=== PATIENT | male | born 1975 | race Caucasian/White ===

== ENCOUNTER 2017-10-21 14:26 | Emergency (ER) | payer MEDICAID, SELFPAY ==
[2017-10-21 14:49] VITALS: BP 140/78; PULSE 74; RESP 16; TEMP 36.6; O2SAT 98; BMI 27.3
--- NOTE | 2017-10-21 15:33 | HMH.EDUTC ---
[facility] [place] Disposition Clinical Impression: Gangrene of toe of right foot Disposition: Home, Self-Care Condition on Discharge: Good Instructions: Gangrene Additional Instructions: Start antibiotic immediately I understand this can be painful. Continue tylenol/motrin for pain. If you have not heard from Dr. Byrd's office by noon tomorrow. call them. Call [phone] ([facility]) and ask for Dr. Byrd's office. Prescriptions: cephALEXin [Keflex 500mg Cap] 500 mg PO QID #40 cap Referrals: Maite Byrd DPM [Physician] - (I spoke to her this evening. She was already on her way home. Her office should call you in the morning. Be expecting their call. if you have not heard from them by noon, call them. 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 Byrd and she reported her office would call you.) Time of Disposition: 17:53 Medical Decision Making Vital Signs: 10/21/17 14:49 Temperature 97.9 F Temperature Source Temporal Artery Scan Pulse Rate [Right] 74 Respiratory Rate 16 Blood Pressure [Right Arm] 140/78 Blood Pressure Mean [Right Arm] 98 Blood Pressure Source [Right Arm] Automatic Cuff Blood Pressure Position [Right Arm] Sitting 02 Sat by Pulse Oximetry 98 Oxygen Delivery Method Room Air - Radiology Data #1 Image(s): Other (right foot) Image Reviewed: Yes I reviewed the patient's radiology image, Yes I have reviewed radiologist's interpretation, Yes I reviewed the patient's radiology image w/the ED provider mild hallux valgus w/ OA of first MTP joint; NAD - Physician Consults Physician Consulted: Dr. Keller Time: 17:15 Reason -: Admission Comment/Response: Discussed HPI, exam and xray. Already gone for the day. Took pt's name and will call him in the morning to arrange an appt and outpt testing. No additional workup tonight. - Michele Inquiry Pt receiving controlled substance: No [facility] [place] HPI - General Stated complaint: right little toe pain Time Seen by Provider: 10/21/17 15:30 Mode of Arrival: Ambulatory Source of Information: Patient Limitations: No Limitations Description of Symptoms (Recalled from Triage Doc. by RN): STUBBED TOE 2 MOS AGO, RIGHT LAST TOE BRUISED X2 WKS HEENT Symptoms (Recalled from RN notes): No Resp Symptoms (Recalled from RN notes): No Skin Symptoms (Recalled from RN notes): No MS Symptoms (Recalled from RN notes): Yes Functional Status (Recalled from RN notes): N - History of Present Illness Provider Complaint: c/o right 5th digit pain. Report he stubbed it approx 2 months ago. Had pain then but didn't seek treatment. Since then, getting more painful and more bruised . Tylenol and ibuprofen not really helping. Denies N/T. Pain worse with movement or touch. - Related Data Previous Rx's Medication Instructions Recorded cephALEXin [Keflex 500mg Cap] 500 mg PO QID #40 cap 10/21/17 Allergies Allergy/AdvReac Type Severity Reaction Status Date / Time No Known Allergies Allergy Verified 10/21/17 14:54 - Worker's Comp Is this a Worker's Comp case?: No [facility] History I have reviewed the patient's past medical history: Yes (denies any hx, no PCP) Medical History: Denies:: Diabetes Mellitus Type 1, Diabetes Mellitus Type 2, Hypertension Other Surgeries: Yes: No Previous Surgery - *Social History Smoking Status: Current every day smoker Tobacco Type: cigarettes Alcohol Intake: never - Psychiatric History Expresses thoughts of harming self/others: None Suicide Plan Description: No Plan ROS Obtained: Yes Systems reviewed as appropriate & no additional complaints - Constitutional Denies body ache(s), Denies chills, Denies fever(s) - Gastrointestinal Denies nausea, Denies vomiting - Musculoskeletal Reports abnormal walking ( because of the pain ), Reports joint swelling (generalized throughout right 5th digit), Reports limited joint movement (right 5th digit only), Reports radiating pain into limb (starting to radiate into distal foot), Denies
--- NOTE | 2017-10-21 15:35 | XR_ITS ---
XR foot RT 2V HISTORY: ITS.REASON: PAIN ORDERING PHYSICIAN: Moses Tran PATIENT AGE: 42 years COMPARISON: None FINDINGS: There is mild hallux valgus with mild osteoarthritic change of the first metatarsophalangeal joint. Small calcific density is present at the medial aspect of the interphalangeal joint of the great toe nonspecific. No fracture or dislocation. Bony spur is present along the dorsal aspect of the navicular at the talonavicular joint. There is a small calcaneal spur. No fracture or dislocation. No lytic or blastic change. IMPRESSION: Mild hallux valgus with osteoarthritis of the first MTP joint
--- NOTE | 2017-10-21 15:37 | ED_ITS ---
[facility] – [place] Disposition Clinical Impression: Gangrene of toe of right foot Disposition: Home, Self-Care Condition on Discharge: Good Instructions: Gangrene Additional Instructions: Start antibiotic immediately I understand this can be painful. Continue tylenol/motrin for pain. If you have not heard from Dr. Byrd's office by noon tomorrow. call them. Call [phone] ([facility]) and ask for Dr. Byrd's office. Prescriptions: cephALEXin [Keflex 500mg Cap] 500 mg PO QID #40 cap Referrals: Maite Byrd DPM [Physician] - (I spoke to her this evening. She was already on her way home. Her office should call you in the morning. Be expecting their call. if you have not heard from them by noon, call them. Report you were here in [facility], xray done, ICE CRUSHER spoke to Dr. Byrd and she reported her office would call you.) Time of Disposition: 17:53 Medical Decision Making Vital Signs: 10/21/17 14:49 Temperature 97.9 F Temperature Source Temporal Artery Scan Pulse Rate [Right] 74 Respiratory Rate 16 Blood Pressure [Right Arm] 140/78 Blood Pressure Mean [Right Arm] 98 Blood Pressure Source [Right Arm] Automatic Cuff Blood Pressure Position [Right Arm] Sitting 02 Sat by Pulse Oximetry 98 Oxygen Delivery Method Room Air - Radiology Data #1 Image(s): Other (right foot) Image Reviewed: Yes I reviewed the patient's radiology image, Yes I have reviewed radiologist's interpretation, Yes I reviewed the patient's radiology image w/the ED provider mild hallux valgus w/ OA of first MTP joint; NAD - Physician Consults Physician Consulted: Dr. Keller Time: 17:15 Reason -: Admission Comment/Response: Discussed HPI, exam and xray. Already gone for the day. Took pt's name and will call him in the morning to arrange an appt and outpt testing. No additional workup tonight. - Michele Inquiry Pt receiving controlled substance: No [facility] [place] HPI - General Stated complaint: right little toe pain Time Seen by Provider: 10/21/17 15:30 Mode of Arrival: Ambulatory Source of Information: Patient Limitations: No Limitations Description of Symptoms (Recalled from Triage Doc. by RN): STUBBED TOE 2 MOS AGO , RIGHT LAST TOE BRUISED X2 WKS HEENT Symptoms (Recalled from RN notes): No Resp Symptoms (Recalled from RN notes): No Skin Symptoms (Recalled from RN notes): No MS Symptoms (Recalled from RN notes): Yes Functional Status (Recalled from RN notes): N - History of Present Illness Provider Complaint: c/o right 5th digit pain. Report he stubbed it approx 2 months ago. Had pain then but didn't seek treatment. Since then, getting more painful and more bruised . Tylenol and ibuprofen not really helping. Denies N/ T. Pain worse with movement or touch. - Related Data Previous Rx's Medication Instructions Recorded cephALEXin [Keflex 500mg Cap] 500 mg PO QID #40 cap 10/21/17 Allergies Allergy/AdvReac Type Severity Reaction Status Date / Time No Known Allergies Allergy Verified 10/21/17 14:54 - Worker's Comp Is this a Worker's Comp case?: No [facility] History I have reviewed the patient's past medical history: Yes (denies any hx, no PCP) Medical History: Denies:: Diabetes Mellitus Type 1, Diabetes Mellitus Type 2, Hypertension Other Surgeries: Yes: No Previous Surgery - *Social History Smoking Status: Current every day smoker Tobacco Type: cigarettes Alcohol Intake: never
== END 2017-10-21 18:01 | disposition home or self-care (01) ==
PROVIDERS: Emergency Provider Nurse Practitioner Family; Family Provider Internal Medicine Adolescent Medicine; PCP Internal Medicine Adolescent Medicine
DX: M25.571 Pain in right ankle and joints of right foot (principal)
CPT/HCPCS: 73620; 99202; 99282; 99291

== ENCOUNTER → 2018-04-11 12:42 | Outpatient (CLI) | payer MEDICAID, SELFPAY ==
[2018-04-11 13:13] LABS: Basophils % 0.4 % (0.1-2.0); Eosinophils # 0.3 K/mm3 (0.0-0.4); Eosinophils % 4.5 % (0.1-12.0); Hematocrit 42.7 % (42.0-52.0); Hemoglobin 13.5 g/dL (14.1-18.0); Lymphocytes # 2.3 K/mm3 (0.7-4.5); Mean Corpuscular HGB Conc 31.6 g/dL (31.8-35.4); Mean Corpuscular Hemoglobin 29.1 pg (27.0-31.2); Mean Platelet Volume 8.6 fl (7.4-10.4); Monocytes # 0.4 K/mm3 (0.1-1.0); Monocytes % 5.8 % (1.7-9.3); Neutrophils # 4.1 K/mm3 (1.8-7.8); Neutrophils % 57.3 % (37.0-80.0); Platelet Count 206 K/mm3 (142-424); Red Blood Count 4.64 M/mm3 (4.60-6.20); Red Cell Distribution Width 13.8 % (11.5-17.5); White Blood Count 7.1 K/mm3 (4.8-10.8)
[2018-04-11 15:07] LABS: Alanine Aminotransferase 27 U/L (12-78); Albumin Level 3.6 gm/dL (3.4-5.0); Alkaline Phosphatase 74 U/L (46-116); Anion Gap 16.6 mEq/L (5-15); Aspartate Amino Transferase 21 U/L (15-37); Bilirubin,Total 0.2 mg/dL (0.2-1.0); Blood Urea Nitrogen 9 mg/dL (7-18); Calcium 8.6 mg/dL (8.5-10.1); Carbon Dioxide 24 mmol/L (21.0-32.0); Chloride 107 mmol/L (98-107); Chol/HDL Ratio 6.1 (1-3.5); Cholesterol 172 mg/dL (140-200); Creatinine,Serum 0.89 mg/dL (0.70-1.30); Estimated Glomerular Filt Rate 92 ml/min (>60); GFR (African American) 112 ML/MIN (>60); Globulin 3.6 gm/dl (1.3-3.2); Glucose 97 mg/dL (74-106); HDL Cholesterol 28 mg/dL (27-67); LDL Cholesterol 81 mg/dL (0-130); Potassium 3.6 mmoL/L (3.5-5.1); Sodium 144 mmol/L (136-145); Thyroid Stimulating Hormone 2.37 uIU/ml (0.358-3.740); Total Protein,Serum 7.2 gm/dL (6.4-8.2); Triglycerides 315 mg/dL (30-200); VLDL Cholesterol 63 mg/dL (0-40)
[2018-04-12 18:10] LABS: Vitamin D 25 Hydroxy 27.1 ng/mL (30.0-100.0)
[2018-04-12 18:12] LABS: Vitamin B12 505 pg/mL (232-1245)
== END ==
PROVIDERS: Visit Provider Nurse Practitioner Family
DX: Z00.00 Encounter for general adult medical examination without abnormal findings (principal); R53.83 Other fatigue
CPT/HCPCS: 36415; 80053; 80061; 82607; 82652; 84443; 85025

== ENCOUNTER → 2018-04-24 14:46 | Outpatient (CLI) | payer MEDICAID, SELFPAY ==
--- NOTE | 2018-04-24 14:51 | XR_ITS ---
XR foot RT min 3V HISTORY: Injury with pain to the fifth toe with inflammation and infection ITS.REASON: CELLULITIS OF RT TOE ORDERING PHYSICIAN: Abi Veliz PATIENT AGE: 43 years COMPARISON: 10/21/2017 FINDINGS: Mild hallux valgus with osteoarthritis of the first MTP joint once again noted. No acute fracture or dislocation. No lytic or blastic change hypertrophic changes are present along the dorsal aspect of the navicular. There is a lucency along the mid aspect of the talus is felt to be due to a mock line from overlying bony hypertrophic change. No bony erosive process evident. No soft tissue gas or radiopaque foreign body. A small calcific density is present along medial aspect of the interphalangeal joint of the great toe unchanged IMPRESSION: As above, No acute finding
== END ==
PROVIDERS: PCP Nurse Practitioner Family; Visit Provider Nurse Practitioner Family
DX: L03.031 Cellulitis of right toe (principal)
CPT/HCPCS: 73630

== ENCOUNTER → 2018-06-02 11:42 | Outpatient (CLI) | payer MEDICAID, SELFPAY | PROVIDERS: Family Provider Internal Medicine Adolescent Medicine; PCP Internal Medicine Adolescent Medicine; Visit Provider Podiatrist | DX: Z51.89 Encounter for other specified aftercare (principal); M79.673 Pain in unspecified foot; R09.89 Other specified symptoms and signs involving the circulatory and respiratory systems | CPT/HCPCS: 36415; 80053; 83036; 85025; 85651; 86140 ==

== ENCOUNTER → 2018-06-02 11:54 | Outpatient (CLI) | payer MEDICAID, SELFPAY ==
--- NOTE | 2018-06-02 11:55 | XR_ITS ---
XR foot wt bearing RT 3V HISTORY: ITS.REASON: pain ORDERING PHYSICIAN: Maite Byrd DPM PATIENT AGE: 43 years COMPARISON: 04/24/2018 FINDINGS: Mild hallux valgus with osteoarthritis of the first MTP joint once again noted. No acute fracture or dislocation. No lytic or blastic change hypertrophic changes are present along the dorsal aspect of the navicular. No bony erosive process evident. No soft tissue gas or radiopaque foreign body. A small calcific density is present along medial aspect of the interphalangeal joint of the great toe unchanged IMPRESSION: No change with no acute finding
[2018-06-02 12:02] LABS: Basophils % 0.3 % (0.1-2.0); Eosinophils # 0.2 K/mm3 (0.0-0.4); Eosinophils % 2.8 % (0.1-12.0); Hematocrit 42.5 % (42.0-52.0); Hemoglobin 13.9 g/dL (14.1-18.0); Lymphocytes # 2.5 K/mm3 (0.7-4.5); Lymphocytes % 32.6 K/mm3 (10-50); Mean Corpuscular HGB Conc 32.8 g/dL (31.8-35.4); Mean Corpuscular Hemoglobin 30.5 pg (27.0-31.2); Mean Corpuscular Volume 93.2 fl (80-94); Mean Platelet Volume 8.3 fl (7.4-10.4); Monocytes # 0.5 K/mm3 (0.1-1.0); Monocytes % 7.2 % (1.7-9.3); Neutrophils # 4.3 K/mm3 (1.8-7.8); Neutrophils % 57.1 % (37.0-80.0); Platelet Count 220 K/mm3 (142-424); Red Blood Count 4.57 M/mm3 (4.60-6.20); Red Cell Distribution Width 14.3 % (11.5-17.5); White Blood Count 7.5 K/mm3 (4.8-10.8)
[2018-06-02 12:17] LABS: Hemoglobin A1C 5.8 % (0.0-7.0)
[2018-06-02 12:44] LABS: Erythrocyte Sedimentation Rate 17 mm/hr (0-15)
[2018-06-02 12:54] LABS: Alanine Aminotransferase 22 U/L (12-78); Albumin Level 3.7 gm/dL (3.4-5.0); Albumin/Globulin Ratio 1.1 (1.1-1.8); Alkaline Phosphatase 75 U/L (46-116); Anion Gap 12.1 mEq/L (5-15); Aspartate Amino Transferase 14 U/L (15-37); Bilirubin,Total 0.2 mg/dL (0.2-1.0); Blood Urea Nitrogen 9 mg/dL (7-18); Calcium 9.3 mg/dL (8.5-10.1); Carbon Dioxide 28 mmol/L (21.0-32.0); Chloride 107 mmol/L (98-107); Creatinine,Serum 0.98 mg/dL (0.70-1.30); Estimated Glomerular Filt Rate 83 ml/min (>60); GFR (African American) 100 ML/MIN (>60); Globulin 3.5 gm/dl (1.3-3.2); Glucose 93 mg/dL (74-106); Potassium 4.1 mmoL/L (3.5-5.1); Sodium 143 mmol/L (136-145); Total Protein,Serum 7.2 gm/dL (6.4-8.2)
[2018-06-02 12:58] LABS: C-Reactive Protein < 0.2 mg/L (0.0-0.9)
== END ==
PROVIDERS: Visit Provider Podiatrist
DX: M79.673 Pain in unspecified foot (principal); Z51.89 Encounter for other specified aftercare
CPT/HCPCS: 36415; 73630; 80053; 83036; 85025; 85651; 86140

== ENCOUNTER → 2018-06-09 10:39 | Outpatient (CLI) | payer MEDICAID, SELFPAY ==
--- NOTE | 2018-06-09 10:44 | US_ITS ---
US Arterial Ankle Brachial Ind History: Claudication, rest pain, current smoker, skin changes ORDERING PHYSICIAN: Maite Byrd DPM PATIENT AGE: 43 years TECHNIQUE: Segmental pressures obtained of both right and left leg. These are compared to brachial blood pressure to yield index at each level sampled including summary NIMA. The data sheets from the procedure are available in PACS FINDINGS Rest study only performed today No prior studies available for comparison. Blood pressures reported are in millimeters mercury. RIGHT LEG NIMA = .6. RIGHT LEG TBI=.3 Brachial BP: 141 Thigh BP: 77 Calf BP: 79 Ankle PT: 87 Ankle DP : 84 Digit =39 LEFT LEG NIMA = .7 LEFT LEG TBI= .6 Brachial BPD: 153 Thigh BP: 102 Calf BP: 98 Ankle PT:99 Ankle DP: 96 Digit = 96 Pulses and waveforms: Diminished waveforms greater on the right and diminished pulses greater on the right IMPRESSION: 1. The ABIs are depressed bilaterally consistent with moderate peripheral vascular disease. 2. The TBI s are also low right greater than left.
== END ==
PROVIDERS: Family Provider Internal Medicine Adolescent Medicine; PCP Nurse Practitioner Family; Visit Provider Podiatrist
DX: R23.9 Unspecified skin changes (principal)
CPT/HCPCS: 93922

== ENCOUNTER → 2018-06-27 09:59 | Outpatient (CLI) | payer MEDICAID, SELFPAY ==
--- NOTE | 2018-06-27 10:00 | CA_ITS ---
PROCEDURE: 2-D M-mode and color Doppler study INDICATIONS FOR THE TEST: Chest pain COPD Heart Murmur Tobacco Smoking Palpitations Fatigue Syncope Edema Hypertension Diabetes Mellitus Rheumatic Fever SOB+ROSA+Obesity Hyperlipidemia Family History HD Additional History Dizziness, ABN NIMA, Abn EKG PATIENT INFORMATION HEIGHT: 67 WEIGHT: 157 GENDER: Male B/P: 137/69 2-D/M-MODE INTERPRETATION: 2-D MEASUREMENTS OBSERVED VALUES IN CMS Right Ventricular Dimension (RVDd) 2.7 Interventricular Septum (Thickness)(IVsd) 1.3 Left Ventricular Internal Dimensions(LVIDd) 4.6 Left Ventricular Posterior Wall (Thickness)(LVPWd) 1.2 Aortic Root 2.8 Aortic Cusp Separation 2.0 Left Atrial Dimensions (LAD) 3.1 2D 1. Left atrium is mildly enlarged, left ventricle is normal size, there is mild concentric left ventricular hypertrophy, visually estimated ejection fraction 55% with no obvious regional wall motion abnormality. 2. The right atrium and right ventricle are normal size and contractility. 3. The aortic valve is minimally thickened and fibrosed. 4. The mitral and tricuspid valve are grossly normal. 5. The pulmonic valve is poorly visualized. 6. No significant pericardial effusion noted. DOPPLER INTERROGATION: Doppler interrogation of the aortic, mitral and tricuspid valvular presence of mild mitral and tricuspid regurgitation, tricuspid regurgitation jet velocity is insufficient for calculation of the right ventricular systolic pressure, grade 1 diastolic dysfunction seen with tissue Doppler evidence of raised left atrial pressure. CONCLUSION: 1. Normal left ventricular size, mild concentric left ventricular hypertrophy, visually estimated ejection fraction 55% with no obvious regional wall motion abnormality, grade 1 diastolic dysfunction seen with tissue Doppler evidence of raised left atrial pressure. 2. Mild mitral and tricuspid regurgitation 3. No significant pericardial effusion noted.
--- NOTE | 2018-06-27 10:00 | CI_ITS ---
Cerebrovascular Exam Indications: 785.9 Bruit. IMPRESSIONS 1. The bilateral vertebral arteries are patent with normal antegrade flow. 2. Study suggests 50-69% stenosis involving the right internal carotid artery. 3. Study suggests less than 20% stenosis involving the left internal carotid artery. Carotid duplex study. Complete study and Doppler flow study including spectral analysis, color and horton scale imaging. Height: Height: 170.2cm. Height: 67in. Weight: Weight: 70.3kg. Weight: 154.7lb. Body mass index: BMI: 24.3kg/m^2. Body surface area: BSA: 1.83m^2. Location: Vascular laboratory. Patient status: Outpatient. Tables: Arterial flow: + +--------+--------+ Location V sys V ed + +--------+--------+ Right CCA - proximal 155cm/s 33.2cm/s + +--------+--------+ Right CCA - distal 110cm/s 28.8cm/s + +--------+--------+ Right ECA 125cm/s -------- + +--------+--------+ Right ICA - proximal 147cm/s 62.1cm/s + +--------+--------+ Right ICA - mid 127cm/s 56.6cm/s + +--------+--------+ Right ICA - distal 149cm/s 57.4cm/s + +--------+--------+ Right vertebral 71cm/s -------- + +--------+--------+ Left CCA - proximal 181cm/s 36.7cm/s + +--------+--------+ Left CCA - distal 102cm/s 26.2cm/s + +--------+--------+ Left ECA 134cm/s -------- + +--------+--------+ Left ICA - proximal 103cm/s 46.9cm/s + +--------+--------+ Left ICA - mid 98.7cm/s 44.7cm/s + +--------+--------+ Left ICA - distal 99.8cm/s 38.6cm/s + +--------+--------+ Left vertebral 49.1cm/s -------- + +--------+--------+ Velocity ratios: + + + + + + Right, V sys Right, V ed Left, V sys Left, V ed + + + + + + Max ICA/dist CCA 1.35 2.16 1.01 1.79 + + + + + + (Report amended ) Electronically signed by: Monty eJffery [id number]
== END ==
PROVIDERS: Family Provider Internal Medicine Adolescent Medicine; PCP Internal Medicine Adolescent Medicine; Visit Provider Internal Medicine Cardiovascular Disease
DX: I73.9 Peripheral vascular disease, unspecified (principal); L97.519 Non-pressure chronic ulcer of other part of right foot with unspecified severity; R06.00 Dyspnea, unspecified; R20.0 Anesthesia of skin; R42 Dizziness and giddiness; R68.89 Other general symptoms and signs; R94.31 Abnormal electrocardiogram [ECG] [EKG]
CPT/HCPCS: 93306; 93880

== ENCOUNTER → 2018-07-11 11:49 | Outpatient (CLI) | payer MEDICAID, SELFPAY ==
--- NOTE | 2018-07-11 11:51 | NM_ITS ---
History and Indications: Peripheral vascular disease, tobacco use, chest, shortness of breath Procedure: Patient received 0.4 mg of intravenous Lexiscan, resting heart rate was 67 bpm resting blood pressure 165/95, with Lexiscan maximum heart rate achieved was 98 bpm which is less than 85% of the maximum predicted heart rate and a blood pressure was 149/82. With Lexiscan patient complained of lightheadedness. Electrocardiogram: Resting electrocardiogram showed sinus rhythm rightward axis, with Lexiscan less than 1.[address] segment depression noted from the baseline EKG. The EKG portion of the Lexiscan Myoview is nondiagnostic baseline abnormal EKG Cardiac stress and resting SPECT images: Cardiac stress and rest SPECT images were obtained using technetium 99 Myoview 30.3 mCi at stress and 10.5 mCi at rest. Gated SPECT further analysis of segmental wall motion and calculation of the ejection fraction also done. Cardiac stress and rest SPECT images show decreased tracer activity in the apex, inferior and posterobasal wall, partially improves on the resting images suggestive of mixed ischemia and scar, computer derived ejection fraction of 42% with moderate hypokinesis involving the inferior, posterobasal and apical wall. Right ventricle is normal size and contractility. Conclusion: 1. The EKG portion of the Lexiscan Myoview is nondiagnostic. 2. Scintigraphic evidence of ischemia and scar involving the inferior, posterobasal and apical wall, computer derived ejection fraction is 42% with segmental wall motion abnormality described above, right ventricle is normal size and contractility. 3. Abnormal Lexiscan Myoview study.
--- NOTE | 2018-07-11 13:59 | HMH.ITSHM ---
clopidogrel asa furosemide bupropion
== END ==
PROVIDERS: Family Provider Internal Medicine Adolescent Medicine; PCP Internal Medicine Adolescent Medicine; Visit Provider Internal Medicine
DX: I73.9 Peripheral vascular disease, unspecified (principal); M79.605 Pain in left leg; R06.09 Other forms of dyspnea; R20.0 Anesthesia of skin; R42 Dizziness and giddiness; R68.89 Other general symptoms and signs; R94.31 Abnormal electrocardiogram [ECG] [EKG]
CPT/HCPCS: 78452; 93017; A9502; J2785

== ENCOUNTER 2018-07-26 14:40 | Inpatient (IN) ==
--- NOTE | 2018-07-26 14:50 | Emergency Department Note ---
ED Disposition Clinical Impression: Upper GI bleed, Blood loss anemia Disposition: Still a Patient Condition on Discharge: Serious Referrals: Hoang Navarro MD [Primary Care Provider] - - Critical Care Critical Care Time: No Attestation: On 07/26/18, the high probability of a clinically significant, sudden or life threatening deterioration of the following system(s) required my full and direct attention, intervention and personal management. The time I documented below is in addition to time spent performing reported procedures but includes the following listed in this critical care notation. Medical Decision Making - Michele Inquiry Pt receiving controlled substance: No Vital Signs: 07/26/18 14:53 07/26/18 14:55 Pulse Rate [Left Radial] 88 125 H Respiratory Rate 18 Blood Pressure [Right Arm] 102/64 L 96/57 L Blood Pressure Mean [Right Arm] 76 70 Blood Pressure Source [Right Arm] Automatic Cuff Automatic Cuff Blood Pressure Position [Right Arm] Supine Standing 02 Sat by Pulse Oximetry 98 Oxygen Delivery Method Room Air - Lab Data Lab Results 07/26/18 14:46: WBC 7.8, RBC 3.15 L, Hgb 9.8 L, Hct 29.5 L, MCV 93.7, MCH 31.0, MCHC 33.1, RDW 13.4, Plt Count 213, MPV 9.2, Neut % (Auto) 66.4, Lymph % (Auto) 29.5, Carter % (Auto) 3.3, Eos % (Auto) 0.6, Baso % (Auto) 0.2, Neut # (Auto) 5.2, Lymph # (Auto) 2.3, Carter # (Auto) 0.3, Eos # (Auto) 0.1, Baso # (Auto) 0.0 07/26/18 14:46: PT 10.7, INR 1.04, APTT 22.5 L 07/26/18 14:46: Sodium 142, Potassium 3.6, Chloride 107, Carbon Dioxide 25, Anion Gap 13.6, BUN 39 H, Creatinine 0.87, Estimated Creat Clear 103, Estimated GFR 95, Est GFR ( Amer) 115, Glucose 156 H, Calcium 8.7, Troponin I < 0.02 Result diagrams: 07/26/18 14:46 07/26/18 14:46 Orders (Tests/Meds): ED MEDICATIONS Generic Name Dose Route Start Last Admin Trade Name [place] PRN Reason Stop Dose Admin Sodium Chloride 1,000 mls @ 999 mls/hr 07/26/18 15:15 07/26/18 15:08 Sod Chlor 0.9% 1000ml Bag IV 07/26/18 16:15 999 mls/hr .Q1H1M MATT Administration Pantoprazole Sodium 80 mg/ 100 mls @ 10 mls/hr 07/26/18 16:00 Sodium Chloride IV 07/29/18 15:59 .Q10H MATT Pantoprazole Sodium 80 mg/ 100 mls @ 100 mls/hr 07/26/18 15:50 Sodium Chloride IV 07/26/18 16:49 ONCE ONE ORDERS Category Date Time Status Occult Blood,Stool Stat Lab 07/26/18 15:45 Received - Radiology Data #1 Image(s): Chest Image Reviewed: Yes I reviewed the patient's radiology image Preliminary Findings: Normal/NAD - ECG Data Tracing #1 EKG interpreted by Jf Ortiz MD: Rhythm: sinus Rate: 92 [place]: normal Ectopy: none Conduction: normal ST Segment Changes: Downsloping depression inferior and lateral T Wave Changes: Inversion inferior and lateral Q Waves: none Prior electrocardiagrams reviewed. No change from prior tracings. - Physician Consults Physician Consulted: Edgar Navarro Time: 16:08 Reason -: Admission Comment/Response: Continue Protonix drip. H&H every 6 hours. Type and crossmatch for 2 units. Consult surgery. Additional Consult: Joey Time: 16:08 Reason -: Surgical Eval/Care Comment/Response: Clear liquids now, n.p.o. after midnight. Contact house provider to notify of EGD at 8 AM. General Adult HPI - General Chief complaint: Chest Pain Stated complaint: chest pain Time Seen by Provider: 07/26/18 15:30 - History of Present Illness HPI narrative: States that he got up to go to the bathroom this morning and was very lightheaded when he stood. Stool was black. Says that he gets chest pain when he stands up. Currently has no chest pain. No vomiting of blood. No abdominal pain. No prior history of GI bleed. He is nondrinker. Takes a Profen several times a week for joint pains. Recent stent placement for peripheral vascular disease 1 month ago. - Related Data Home Medications Medication Instructions Recorded Confirmed aspirin 81 mg tablet,delayed 81 mg PO DAILY 07/03/18 07/26/18 release clopidogrel 75 mg tablet 75 mg PO DAILY 07/03/18 07/26/18 Furosemide [Furosemide 20mg Tab] 20 mg PO DAILY 07/26/18 07/26/18 Nicotine [Nicotine Patch] 1 patch TRANSDERMA Q24H 07/26/18 07/26/18 buPROPion HCl [Bupropion HCl Sr] 150 mg PO DAILY 07/26/18 07/26/18 Allergies Allergy/AdvReac Type Severity Reaction Status Date / Time No Known Allergies Allergy Verified 06/02/18 10:22 [facility] History I have reviewed the patient's past medical history: Yes Medical History: Denies:: Diabetes Mellitus Type 1, Diabetes Mellitus Type 2, Hypertension Other Surgeries: Yes: No Previous Surgery Comment: Bilateral Runoff with stents - Social History Smoking Status: Current every day smoker Tobacco Type: cigarettes Alcohol Intake: never Alcohol Intake Frequency:: other Occupational Status: employed ROS Obtained: Yes All systems reviewed & no additional complaints - Constitutional Constitutional: Reports fatigue - Cardiovascular Cardiovascular: Reports chest pain - Gastrointestinal Gastrointestingal: Reports: black, tarry stools. Denies: abdominal pain, vomiting blood, vomiting Physical Exam - General General appearance: alert, in no apparent distress - Head Head exam: atraumatic, normocephalic, normal inspection - Eye Eye exam: Present: normal appearance, PERRL, EOMI - ENT ENT exam: Present: mucous membranes moist - Neck Neck exam: Present: normal inspection, full ROM, trachea midline. Absent: meningismus, lymphadenopathy - Chest Chest inspection: Present: normal inspection, symmetric chest wall rise. Absent: tenderness - Respiratory Respiratory exam: Present: normal lung sounds bilaterally. Absent: respiratory distress - Cardiovascular Cardiovascular exam: Present: regular rate, normal rhythm. Absent: JVD - Abdominal Exam Abdominal exam: Present: soft, normal bowel sounds. Absent: distention, t enderness, guarding - Rectal Exam Rectal exam: Present: black stool. Absent: mass, tenderness - Extremities Exam Extremities exam: Present: normal inspection, full ROM, normal capillary refill - Neurological Exam Neurological exam: Present: alert, oriented X3 - Psychiatric Psychiatric exam: Present: normal affect, normal mood - Skin Skin exam: Present: warm, dry, intact, pallor
[2018-07-26 14:59] LABS: Basophils % 0.2 % (0.1-2.0); Eosinophils # 0.1 K/mm3 (0.0-0.4); Eosinophils % 0.6 % (0.1-12.0); Hematocrit 29.5 % (42.0-52.0); Hemoglobin 9.8 g/dL (14.1-18.0); Lymphocytes # 2.3 K/mm3 (0.7-4.5); Lymphocytes % 29.5 K/mm3 (10-50); Mean Corpuscular HGB Conc 33.1 g/dL (31.8-35.4); Mean Corpuscular Volume 93.7 fl (80-94); Mean Platelet Volume 9.2 fl (7.4-10.4); Monocytes # 0.3 K/mm3 (0.1-1.0); Monocytes % 3.3 % (1.7-9.3); Neutrophils # 5.2 K/mm3 (1.8-7.8); Neutrophils % 66.4 % (37.0-80.0); Platelet Count 213 K/mm3 (142-424); Red Blood Count 3.15 M/mm3 (4.60-6.20); Red Cell Distribution Width 13.4 % (11.5-17.5); White Blood Count 7.8 K/mm3 (4.8-10.8)
[2018-07-26 15:07] LABS: Activated Partial Thrombo Time 22.5 seconds (23.6-34.0); INR 1.04 (0.9-1.1); Prothrombin Time 10.7 seconds (9.4-11.8)
[2018-07-26 15:13] LABS: Anion Gap 13.6 mEq/L (5-15); Blood Urea Nitrogen 39 mg/dL (7-18); Calcium 8.7 mg/dL (8.5-10.1); Carbon Dioxide 25 mmol/L (21.0-32.0); Chloride 107 mmol/L (98-107); Glucose 156 mg/dL (74-106); Potassium 3.6 mmoL/L (3.5-5.1); Sodium 142 mmol/L (136-145)
--- NOTE | 2018-07-26 20:31 | Consult Report ---
*Admission Date: 07/26/18 *Chief complaint: Melena *History of present illness: This is a 43-year-old gentleman seen in consultation from the service of Dr. Navarro for evaluation of possible upper gastrointestinal hemorrhage. He presented to the emergency department earlier today with complaints of "black st ool". He is on aspirin/Plavix status post lower extremity stent placement. No hematemesis. No bright red blood per rectum. Please see history of present illness from emergency department evaluation (forwarded below): States that he got up to go to the bathroom this morning and was very lighth eaded when he stood. Stool was black. Says that he gets chest pain when he stands up. Currently has no chest pain. No vomiting of blood. No abdominal pain. No prior history of GI bleed. He is nondrinker. Takes a Profen (sic) several times a week for joint pains. Recent stent placement for peripheral vascular disease 1 month ago. Review of Systems - Constitutional Denies chills - Eyes Denies change in vision - ENT Denies bleeding gums - *Cardiovascular Denies chest pain - *Respiratory Denies cough - *Gastrointestinal Reports black, tarry stools, Denies abdominal pain, Denies vomiting blood, Denies bright, red blood in stools - *Genitourinary Denies blood in urine - *Musculoskeletal Reports joint pain - Integumentary/Breasts Denies change in hair - *Neurologic Denies abnormal walking - Psychiatric Denies anxiety - Endocrine Denies cold intolerance - Hematologic/Lymphatic Denies easy bleeding, Denies easy bruising - Allergic/Immunologic Denies GI upset with certain foods [facility] History Medical History: Reports:: Peripheral Vascular Disease Denies:: Diabetes Mellitus Type 1, Diabetes Mellitus Type 2, Hypertension Other Surgeries: Yes: No Previous Surgery, Cardiac Catheterization - *Social History Educational Level: Attended High School Smoking Status: Current every day smoker Tobacco Type: cigarettes # Packs/Day (cigarettes): 20 Alcohol Intake: never Alcohol Intake Frequency:: other Occupational Status: employed Household Members: none - Psychiatric History Expresses thoughts of harming self/others: None Suicide Plan Description: No Plan *Family Hx:: No significant family history Meds Home Medications Medication Instructions Recorded Confirmed Type aspirin 81 mg tablet,delayed 81 mg PO DAILY 07/03/18 07/26/18 History release clopidogrel 75 mg tablet 75 mg PO DAILY 07/03/18 07/26/18 History Furosemide [Furosemide 20mg Tab] 20 mg PO DAILY 07/26/18 07/26/18 History Nicotine [Nicotine Patch] 1 patch TRANSDERMA Q24H 07/26/18 07/26/18 History buPROPion HCl [Bupropion HCl Sr] 150 mg PO DAILY 07/26/18 07/26/18 History Allergies Allergy/AdvReac Type Severity Reaction Status Date / Time No Known Allergies Allergy Verified 06/02/18 10:22 Exam Vital signs and Labs for Last 24 Hours: Temp Pulse Resp BP Pulse Ox 98.4 F 74 16 135/63 98 07/26/18 17:29 07/26/18 17:29 07/26/18 17:29 07/26/18 17:29 07/26/18 17:29 Laboratory Results - last 24 hr 07/26/18 14:46: WBC 7.8, RBC 3.15 L, Hgb 9.8 L, Hct 29.5 L, MCV 93.7, MCH 31.0, MCHC 33.1, RDW 13.4, Plt Count 213, MPV 9.2, Neut % (Auto) 66.4, Lymph % (Auto) 29.5, [place] % (Auto) 3.3, Eos % (Auto) 0.6, Baso % (Auto) 0.2, Neut # (Auto) 5.2, Lymph # (Auto) 2.3, [place] # (Auto) 0.3, Eos # (Auto) 0.1, Baso # (Auto) 0.0 07/26/18 14:46: PT 10.7, INR 1.04, APTT 22.5 L 07/26/18 14:46: Sodium 142, Potassium 3.6, Chloride 107, Carbon Dioxide 25, Anio n Gap 13.6, BUN 39 H, Creatinine 0.87, Estimated Creat Clear 103, Estimated GFR 95, Est GFR ( Amer) 115, Glucose 156 H, Calcium 8.7, Troponin I < 0.02 07/26/18 15:45: Stool Occult Blood Positive A 07/26/18 17:38: Blood Type O Positive, Antibody Screen Negative, Crossmatch (AHG) See Detail 07/26/18 18:43: Blood Type Confirm O Positive I & O for Last 24 hours: Intake & Output 07/24/18 07/25/18 07/26/18 07/27/18 11:59 11:59 11:59 11:59 Weight 151 lb 8 oz - Constitutional no acute distress - *Routine HEENT Exam Head: Present: normocephalic, atraumatic - *Routine Respiratory Exam Absent: respiratory distress - *Routine Cardiovascular Exam Present: RRR - *Routine Abdominal Exam Present: soft. Absent: tenderness Results - Labs 07/26/18 14:46 07/26/18 14:46 Laboratory Results - last 24 hr 07/26/18 14:46: WBC 7.8, RBC 3.15 L, Hgb 9.8 L, Hct 29.5 L, MCV 93.7, MCH 31.0, MCHC 33.1, RDW 13.4, Plt Count 213, MPV 9.2, Neut % (Auto) 66.4, Lymph % (Auto) 29.5, [place] % (Auto) 3.3, Eos % (Auto) 0.6, Baso % (Auto) 0.2, Neut # (Auto) 5.2, Lymph # (Auto) 2.3, [place] # (Auto) 0.3, Eos # (Auto) 0.1, Baso # (Auto) 0.0 07/26/18 14:46: PT 10.7, INR 1.04, APTT 22.5 L 07/26/18 14:46: Sodium 142, Potassium 3.6, Chloride 107, Carbon Dioxide 25, Anion Gap 13.6, BUN 39 H, Creatinine 0.87, Estimated Creat Clear 103, Estimated GFR 95, Est GFR ( Amer) 115, Glucose 156 H, Calcium 8.7, Troponin I < 0.02 07/26/18 15:45: Stool Occult Blood Positive A 07/26/18 17:38: Blood Type O Positive, Antibody Screen Negative, Crossmatch (AHG) See Detail 07/26/18 18:43: Blood Type Confirm O Positive Assessment and Plan (1) Melena Current visit: Yes Status: Acute Category: Medical Code(s): K92.1 - Melena Follow-up pending hemoglobin Transfuse as necessary Continue PPI Hold aspirin/Plavix for now Esophagogastroduodenoscopy scheduled for tomorrow morning at 8:00 I have discussed the risks and benefits including, but not limited to: Bleeding Infection Damage to surrounding tissue Inherent risks of sedation The patient agrees to proceed. (2) Blood loss anemia Current visit: Yes Status: Acute Category: Medical Code(s): D50.0 - Iron deficiency anemia secondary to blood loss (chronic)
[2018-07-26 21:18] LABS: Hemoglobin 8.5 g/dL (14.1-18.0)
[2018-07-26 21:19] LABS: Hematocrit 25.6 % (42.0-52.0)
[2018-07-27 03:12] LABS: Hemoglobin 7.3 g/dL (14.1-18.0)
[2018-07-27 03:13] LABS: Hematocrit 22.1 % (42.0-52.0)
--- NOTE | 2018-07-27 07:22 | History & Physical Report ---
*Admission Date: 07/26/18 *Chief complaint: Lightheadedness with chest pain *History of present illness: 43-year-old male awoke yesterday morning and when he went to the bathroom became lightheaded upon standing. Subsequently he had a bowel movement with black stool from that point on every time the patient tried to stand he would become lightheaded and get chest pain. He presented to the emergency department and findings were consistent with an upper GI bleed. Patient admits to taking 600 mg of Advil twice daily for left knee pain. He is on aspirin and Plavix for peripheral arterial disease with recent stenting in the right leg. 1 month ago patient's hemoglobin was above 14 and on presentation to the emergency department hemoglobin was 9. Patient was admitted for serial H&H's. Overnight his hemoglobin dropped less than 8 and transfusion of 2 units of packed red blood cells was begun. Patient was also placed on a Protonix drip. Surgical consult was obtained [facility] History I have reviewed the patient's past medical history: Yes Medical History: Reports:: Peripheral Vascular Disease Denies:: Diabetes Mellitus Type 1, Diabetes Mellitus Type 2, Hypertension Other Surgeries: Yes: No Previous Surgery, Cardiac Catheterization - *Social History Educational Level: Attended High School Smoking Status: Current every day smoker Tobacco Type: cigarettes # Packs/Day (cigarettes): 20 Alcohol Intake: never Alcohol Intake Frequency:: other Occupational Status: employed Household Members: none - Psychiatric History Expresses thoughts of harming self/others: None Suicide Plan Description: No Plan *Family Hx:: No significant family history Review of Systems - Constitutional Reports fatigue, Denies body ache(s), Denies chills - *Cardiovascular Reports chest pain - *Gastrointestinal Reports change in bowel habits, Reports black, tarry stools, Denies abdominal pain, Denies belching - *Genitourinary Denies difficulty urinating Meds Home Medications Medication Instructions Recorded Confirmed Type aspirin 81 mg tablet,delayed 81 mg PO DAILY 07/03/18 07/26/18 History release clopidogrel 75 mg tablet 75 mg PO DAILY 07/03/18 07/26/18 History Furosemide [Furosemide 20mg Tab] 20 mg PO DAILY 07/26/18 07/26/18 History Nicotine [Nicotine Patch] 1 patch TRANSDERMA Q24H 07/26/18 07/26/18 History buPROPion HCl [Bupropion HCl Sr] 150 mg PO DAILY 07/26/18 07/26/18 History Allergies Allergy/AdvReac Type Severity Reaction Status Date / Time No Known Allergies Allergy Verified 06/02/18 10:22 Exam Vital signs and Labs for Last 24 Hours: Temp Pulse Resp BP Pulse Ox 98.3 F 68 18 112/65 98 07/27/18 06:40 07/27/18 06:40 07/27/18 06:40 07/27/18 06:40 07/27/18 06:40 Laboratory Results - last 24 hr 07/26/18 14:46: WBC 7.8, RBC 3.15 L, Hgb 9.8 L, Hct 29.5 L, MCV 93.7, MCH 31.0, MCHC 33.1, RDW 13.4, Plt Count 213, MPV 9.2, Neut % (Auto) 66.4, Lymph % (Auto) 29.5, [place] % (Auto) 3.3, Eos % (Auto) 0.6, Baso % (Auto) 0.2, Neut # (Auto) 5.2, Lymph # (Auto) 2.3, [place] # (Auto) 0.3, Eos # (Auto) 0.1, Baso # (Auto) 0.0 07/26/18 14:46: PT 10.7, INR 1.04, APTT 22.5 L 07/26/18 14:46: Sodium 142, Potassium 3.6, Chloride 107, Carbon Dioxide 25, Anion Gap 13.6, BUN 39 H, Creatinine 0.87, Estimated Creat Clear 103, Estimated GFR 95, Est GFR ( Amer) 115, Glucose 156 H, Calcium 8.7, Troponin I < 0.02 07/26/18 15:45: Stool Occult Blood Positive A 07/26/18 17:38: Blood Type O Positive, Antibody Screen Negative, Crossmatch (AHG) See Detail 07/26/18 18:43: Blood Type Confirm O Positive 07/26/18 21:05: Hgb 8.5 L D, Hct 25.6 L 07/27/18 02:58: Hgb 7.3 L*, Hct 22.1 L* I & O for Last 24 hours: Intake & Output 07/24/18 07/25/18 07/26/18 07/27/18 11:59 11:59 11:59 11:59 Intake Total 120 / 120 Balance 120 / 120 Weight 151 lb 8 oz - Constitutional no acute distress - *Routine HEENT Exam ENT: Present: mucous membranes moist - *Routine Respiratory Exam Present: CTA bilaterally - *Routine Cardiovascular Exam Present: RRR, Normal S1, Normal S2 - *Routine Abdominal Exam Present: soft, normoactive bowel sounds. Absent: tenderness Assessment and Plan (1) Upper GI bleed Current visit: Yes Status: Acute Category: Medical Code(s): K92.2 - Gastrointestinal hemorrhage, unspecified (2) Melena Current visit: Yes Status: Acute Category: Medical Code(s): K92.1 - Melena (3) Blood loss anemia Current visit: Yes Status: Acute Category: Medical Code(s): D50.0 - Iron deficiency anemia secondary to blood loss (chronic) - Assessment and plan all Dx Assessment and Plan for all problems:: 1. Continue Protonix drip 2. Continue every 6 H&H's 3. Surgical consult for EGD
--- NOTE | 2018-07-27 07:35 | Progress Note ---
Subjective Patient reports: no new complaints Exam Vital signs and Labs for Last 24 Hours: Temp Pulse Resp BP Pulse Ox 98.4 F 64 16 113/61 98 07/27/18 07:25 07/27/18 07:25 07/27/18 07:25 07/27/18 07:25 07/27/18 07:25 Laboratory Results - last 24 hr 07/26/18 14:46: WBC 7.8, RBC 3.15 L, Hgb 9.8 L, Hct 29.5 L, MCV 93.7, MCH 31.0, MCHC 33.1, RDW 13.4, Plt Count 213, MPV 9.2, Neut % (Auto) 66.4, Lymph % (Auto) 29.5, [place] % (Auto) 3.3, Eos % (Auto) 0.6, Baso % (Auto) 0.2, Neut # (Auto) 5.2, Lymph # (Auto) 2.3, [place] # (Auto) 0.3, Eos # (Auto) 0.1, Baso # (Auto) 0.0 07/26/18 14:46: PT 10.7, INR 1.04, APTT 22.5 L 07/26/18 14:46: Sodium 142, Potassium 3.6, Chloride 107, Carbon Dioxide 25, Anion Gap 13.6, BUN 39 H, Creatinine 0.87, Estimated Creat Clear 103, Estimated GFR 95, Est GFR ( Amer) 115, Glucose 156 H, Calcium 8.7, Troponin I < 0.02 07/26/18 15:45: Stool Occult Blood Positive A 07/26/18 17:38: Blood Type O Positive, Antibody Screen Negative, Crossmatch (AHG) See Detail 07/26/18 18:43: Blood Type Confirm O Positive 07/26/18 21:05: Hgb 8.5 L D, Hct 25.6 L 07/27/18 02:58: Hgb 7.3 L*, Hct 22.1 L* I & O for Last 24 hours: Intake & Output 07/24/18 07/25/18 07/26/18 07/27/18 11:59 11:59 11:59 11:59 Intake Total 620 / 620 Balance 620 / 620 Weight 151 lb 8 oz Narrative: 2 unit transfusion overnight secondary to drop in hemoglobin. - Constitutional no acute distress - *Routine Cardiovascular Exam Present: RRR - *Routine Abdominal Exam Present: soft Progress Note: A&P (1) Upper GI bleed Status: Acute Assessment and plan: Esophagogastroduodenoscopy this morning Serial hemoglobin/hematocrit Current Visit: Yes (2) Melena Status: Acute Current Visit: Yes (3) Blood loss anemia Status: Acute Current Visit: Yes
--- NOTE | 2018-07-27 07:53 | Progress Note ---
[facility] Anesthesia Checklist - Patient Identification Patient Identification: Arm Band, Verbal (Name & ) - Structural Data Admitted From: Inpatient Planned Operative Procedure/s: EGD Consent for Planned Operative Procedure(s) Verified: Yes Verified Documents: Surgical Consent, History and Physical - Additional verifications Anesthesia Reactions: No - Airway Assessment C-Spine Mobility Assessed: Yes TMJ Mobility Assessed: Yes Dentition: Good Dentition - Neurological Assessment Level of Consciousness: Awake Hx Seizures: No Numbness or tingling in extremities: No - Anesthesia Plan Anesthesia Risk discussed: Yes Anesthesia Plan: Verified ASA Class: II Anesthesia Type: MAC [facility] History I have reviewed the patient's past medical history: Yes Medical History: Reports:: Peripheral Vascular Disease Denies:: Diabetes Mellitus Type 1, Diabetes Mellitus Type 2, Hypertension Other Surgeries: Yes: No Previous Surgery, Cardiac Catheterization - *Social History Educational Level: Attended High School Smoking Status: Current every day smoker Tobacco Type: cigarettes # Packs/Day (cigarettes): 20 Alcohol Intake: never Alcohol Intake Frequency:: other Occupational Status: employed Household Members: none - Psychiatric History Expresses thoughts of harming self/others: None Suicide Plan Description: No Plan *Family Hx:: No significant family history
--- NOTE | 2018-07-27 08:29 | Procedure Note ---
- Procedure: Date: 07/27/18 Procedure Performed:: Esophagogastroduodenoscopy with biopsy and epinephrine injection Indications:: Upper gastrointestinal hemorrhage Performing Provider:: Oliver Cook MD Referring Provider:: Drs. Navarro and Edgar Sedation:: MAC Procedure:: After informed consent was obtained the patient was taken to the endoscopy suite. Sedation ensued after the patient was transferred to the left lateral decubitus position. Pulse, blood pressure, and oxygen saturation were monitored throughout the procedure. The endoscope was advanced beyond the duodenal bulb. Retroflexion within the gastric lumen was accomplished. The gastroscope was carefully removed and the patient was transferred to recovery in stable condition. Please see "findings" and "specimens" below for detail. Findings:: Patchy gastritis Significant patchy duodenitis Sliding hiatal hernia Pyloric channel ulcer with exudate at base (no visible vessel and no adherent clot) Note: 10 mL of epinephrine injected equally between 4 quadrants around pyloric channel ulcer Specimens:: Antral biopsy Recommendations:: Continue PPI Begin Carafate Continue serial hemoglobin/hematocrit Complications:: No immediate Estimated blood obtained (mL): 1
[2018-07-27 09:08] LABS: Hematocrit 30.8 % (42.0-52.0)
[2018-07-27 09:10] LABS: Hemoglobin 10.3 g/dL (14.1-18.0)
--- NOTE | 2018-07-27 10:31 | Pharmacy Consult Notes ---
[facility] Pharmacy VTE Monitoring - Patient Demographics Admission date: 07/27/18 Report Date: 07/27/18 Time: 10:31 Allergies/Adverse Reactions: Patient Allergies No Known Allergies Allergy (Verified 06/02/18 10:22) Height: 1.7 m Weight: 68.719 kg Patient Problems: Current Active Problems Upper GI bleed (Acute) Blood loss anemia (Acute) Melena (Acute) - VTE Risk Labs: VTE Related Lab Results Hgb 10.3 g/dL (14.1-18.0) L D 07/27/18 08:55 Hct 30.8 % (42.0-52.0) L 07/27/18 08:55 Plt Count 213 K/mm3 (142-424) 07/26/18 14:46 PT 10.7 seconds (9.4-11.8) 07/26/18 14:46 INR 1.04 (0.9-1.1) 07/26/18 14:46 APTT 22.5 seconds (23.6-34.0) L 07/26/18 14:46 BUN 39 mg/dL (7-18) H 07/26/18 14:46 Creatinine 0.87 mg/dL (0.70-1.30) 07/26/18 14:46 Estimated Creat Clear 103 mL/min (0-300) 07/26/18 14:46 Was VTE Risk Assessment Performed: Yes VTE Score: 1 VTE Risk Level: Very Low Risk Clinical Trial Participant: No - Prophylaxis VTE Prophylaxis Ordered?: Yes Types of VTE Prophylaxis: TEDS Knee High
[2018-07-27 16:20] LABS: Hematocrit 28.1 % (42.0-52.0); Hemoglobin 9.6 g/dL (14.1-18.0)
[2018-07-27 21:35] LABS: Hematocrit 27.7 % (42.0-52.0); Hemoglobin 9.3 g/dL (14.1-18.0)
[2018-07-28 06:18] LABS: Basophils % 0.2 % (0.1-2.0); Eosinophils # 0.1 K/mm3 (0.0-0.4); Eosinophils % 1.2 % (0.1-12.0); Hematocrit 27.4 % (42.0-52.0); Hemoglobin 9.1 g/dL (14.1-18.0); Lymphocytes % 33.9 K/mm3 (10-50); Mean Corpuscular HGB Conc 33.1 g/dL (31.8-35.4); Mean Corpuscular Hemoglobin 30.6 pg (27.0-31.2); Mean Corpuscular Volume 92.4 fl (80-94); Mean Platelet Volume 9.5 fl (7.4-10.4); Monocytes # 0.2 K/mm3 (0.1-1.0); Monocytes % 4.2 % (1.7-9.3); Neutrophils # 3.5 K/mm3 (1.8-7.8); Neutrophils % 60.5 % (37.0-80.0); Platelet Count 151 K/mm3 (142-424); Red Blood Count 2.97 M/mm3 (4.60-6.20); Red Cell Distribution Width 13.9 % (11.5-17.5); White Blood Count 5.8 K/mm3 (4.8-10.8)
--- NOTE | 2018-07-28 07:02 | Progress Note ---
Subjective Patient reports: no new complaints, feels better Exam Vital signs and Labs for Last 24 Hours: Temp Pulse Resp BP Pulse Ox 97.8 F 63 16 116/62 97 07/28/18 04:00 07/28/18 04:00 07/28/18 04:00 07/28/18 04:00 07/28/18 04:00 Laboratory Results - last 24 hr 07/26/18 17:38: Crossmatch (AHG) See Detail 07/27/18 08:55: Hgb 10.3 L D, Hct 30.8 L 07/27/18 16:00: Hgb 9.6 L, Hct 28.1 L 07/27/18 21:03: Hgb 9.3 L, Hct 27.7 L 07/28/18 06:07: WBC 5.8 D, RBC 2.97 L, Hgb 9.1 L, Hct 27.4 L, MCV 92.4, MCH 30.6, MCHC 33.1, RDW 13.9, Plt Count 151 D, MPV 9.5, Neut % (Auto) 60.5, Lymph % (Auto) 33.9, [place] % (Auto) 4.2, Eos % (Auto) 1.2, Baso % (Auto) 0.2, Neut # (Auto) 3.5, Lymph # (Auto) 2.0, [place] # (Auto) 0.2, Eos # (Auto) 0.1, Baso # (Auto) 0.0 I & O for Last 24 hours: Intake & Output 07/25/18 07/26/18 07/27/18 07/28/18 11:59 11:59 11:59 11:59 Intake Total 620 / 620 923 / 923 Balance 620 / 620 923 / 923 Weight 151 lb 8 oz - Constitutional no acute distress - *Routine Respiratory Exam Absent: respiratory distress - *Routine Cardiovascular Exam Present: RRR - *Routine Abdominal Exam Present: soft Progress Note: A&P (1) Upper GI bleed Status: Acute Current Visit: Yes (2) Melena Status: Acute Current Visit: Yes (3) Blood loss anemia Status: Acute Assessment and plan: Slight decline in hemoglobin this morning may be dilutional. No definitive sign of ongoing hemorrhage. Repeat hemoglobin ordered for 1:00 PM this afternoon. Current Visit: Yes (4) Pyloric channel ulcer Status: Acute Assessment and plan: Continue PPI/Carafate Full liquid diet ordered Current Visit: Yes
--- NOTE | 2018-07-28 08:18 | Progress Note ---
Internal Medicine - PN: Subj *Date: 07/28/18 *Time: 08:17 Interval history: Patient overall states he feels much better, has no vomiting, no diarrhea, no bowel movements. Feels hungry. Denies abdominal pain. Exam Vital signs and Labs for Last 24 Hours: Temp Pulse Resp BP Pulse Ox 98.0 F 67 18 115/61 99 07/28/18 07:59 07/28/18 07:59 07/28/18 07:59 07/28/18 07:59 07/28/18 07:59 Laboratory Results - last 24 hr 07/26/18 17:38: Crossmatch (AHG) See Detail 07/27/18 08:55: Hgb 10.3 L D, Hct 30.8 L 07/27/18 16:00: Hgb 9.6 L, Hct 28.1 L 07/27/18 21:03: Hgb 9.3 L, Hct 27.7 L 07/28/18 06:07: WBC 5.8 D, RBC 2.97 L, Hgb 9.1 L, Hct 27.4 L, MCV 92.4, MCH 30.6, MCHC 33.1, RDW 13.9, Plt Count 151 D, MPV 9.5, Neut % (Auto) 60.5, Lymph % (Auto) 33.9, [place] % (Auto) 4.2, Eos % (Auto) 1.2, Baso % (Auto) 0.2, Neut # (Auto) 3.5, Lymph # (Auto) 2.0, [place] # (Auto) 0.2, Eos # (Auto) 0.1, Baso # (Auto) 0.0 I & O for Last 24 hours: Intake & Output 07/25/18 07/26/18 07/27/18 07/28/18 11:59 11:59 11:59 11:59 Intake Total 620 / 620 1403 / 1403 Balance 620 / 620 1403 / 1403 Weight 151 lb 8 oz Narrative: Patient is awake, alert. Pleasant. Oropharynx with poor dentition but otherwise clear. Lungs are clear, heart rate regular. Abdomen soft, nontender. No edema or clubbing. Assessment and Plan (1) Upper GI bleed Current visit: Yes Status: Acute Category: Medical Code(s): K92.2 - Gastrointestinal hemorrhage, unspecified (2) Melena Current visit: Yes Status: Acute Category: Medical Code(s): K92.1 - Melena (3) Blood loss anemia Current visit: Yes Status: Acute Category: Medical Code(s): D50.0 - Iron deficiency anemia secondary to blood loss (chronic) (4) Pyloric channel ulcer Current visit: Yes Status: Acute Category: Medical Code(s): K25.9 - Gastric ulcer, unspecified as acute or chronic, without hemorrhage or perforation - Assessment and plan all Dx Assessment and Plan for all problems:: Agree with surgical plan of care. Agree with monitoring 1 more day for blood loss issues. Agree with double coverage for ulcer healing/prophylaxis.
[2018-07-28 13:33] LABS: Hematocrit 29.4 % (42.0-52.0); Hemoglobin 9.9 g/dL (14.1-18.0)
[2018-07-29 08:08] LABS: Anion Gap 11.1 mEq/L (5-15); Calcium 8.4 mg/dL (8.5-10.1); Potassium 3.1 mmoL/L (3.5-5.1)
--- NOTE | 2018-07-29 08:20 | Progress Note ---
Subjective Patient reports: no new complaints, feels better Exam Vital signs and Labs for Last 24 Hours: Temp Pulse Resp BP Pulse Ox 98.7 F 66 18 115/60 96 07/29/18 04:00 07/29/18 04:00 07/29/18 04:00 07/29/18 04:00 07/29/18 04:00 Laboratory Results - last 24 hr 07/28/18 13:00: Hgb 9.9 L, Hct 29.4 L 07/29/18 07:50: Sodium 140, Potassium 3.1 L, Chloride 106, Carbon Dioxide 26, Anion Gap 11.1, BUN 16 D, Creatinine 1.05 D, Estimated Creat Clear 86, Estimated GFR 76, Est GFR ( Amer) 92, Glucose 145 H, Calcium 8.4 L I & O for Last 24 hours: Intake & Output 07/26/18 07/27/18 07/28/18 07/29/18 11:59 11:59 11:59 11:59 Intake Total 620 / 620 1403 / 1403 720 / 720 Balance 620 / 620 1403 / 1403 720 / 720 Weight 151 lb 8 oz - Constitutional no acute distress - *Routine Respiratory Exam Absent: respiratory distress - *Routine Cardiovascular Exam Present: RRR - *Routine Abdominal Exam Present: soft. Absent: tenderness Progress Note: A&P (1) Upper GI bleed Status: Acute Current Visit: Yes (2) Melena Status: Acute Current Visit: Yes (3) Blood loss anemia Status: Acute Current Visit: Yes (4) Pyloric channel ulcer Status: Acute Assessment and plan: continue PPI/Carafate close outpatient follow-up repeat EGD in 6-8 weeks Current Visit: Yes
[2018-07-29 08:34] LABS: Basophils % 0.3 % (0.1-2.0); Eosinophils # 0.1 K/mm3 (0.0-0.4); Eosinophils % 0.9 % (0.1-12.0); Hematocrit 28.7 % (42.0-52.0); Hemoglobin 9.3 g/dL (14.1-18.0); Lymphocytes # 1.9 K/mm3 (0.7-4.5); Lymphocytes % 30.6 K/mm3 (10-50); Mean Corpuscular HGB Conc 32.4 g/dL (31.8-35.4); Mean Corpuscular Hemoglobin 30.4 pg (27.0-31.2); Mean Corpuscular Volume 93.7 fl (80-94); Mean Platelet Volume 9.3 fl (7.4-10.4); Monocytes # 0.3 K/mm3 (0.1-1.0); Monocytes % 5.1 % (1.7-9.3); Neutrophils # 3.8 K/mm3 (1.8-7.8); Neutrophils % 63.1 % (37.0-80.0); Platelet Count 167 K/mm3 (142-424); Red Blood Count 3.06 M/mm3 (4.60-6.20); Red Cell Distribution Width 14.2 % (11.5-17.5); White Blood Count 6.1 K/mm3 (4.8-10.8)
--- NOTE | 2018-07-29 08:45 | Discharge Summary ---
General - General Admission date:: 07/26/18 Discharge date: 07/29/18 HPI HPI: 43-year-old male awoke yesterday morning and when he went to the bathroom became lightheaded upon standing. Subsequently he had a bowel movement with black stool from that point on every time the patient tried to stand he would become lightheaded and get chest pain. He presented to the emergency department and findings were consistent with an upper GI bleed. Patient admits to taking 600 mg of Advil twice daily for left knee pain. He is on aspirin and Plavix for peripheral arterial disease with recent stenting in the right leg. 1 month ago patient's hemoglobin was above 14 and on presentation to the emergency department hemoglobin was 9. Patient was admitted for serial H&H's. Overnight his hemoglobin dropped less than 8 and transfusion of 2 units of packed red blood cells was begun. Patient was also placed on a Protonix drip. Surgical consult was obtained Hospital Course Hospital Course: Patient was admitted, endoscopy was done revealing ulcer that was most probably the cause of the bleeding. Patient was held over a couple of days to make sure that his hemoglobin was stable and this indeed was the case. He had no physical exam or other evidence of active bleeding, hemoglobin actually increased throughout his hospital stay. This morning he was doing well, he will be discharged home with proton pump in hibitor and Carafate prescription, close follow-up with surgery. I will ask him to restart his aspirin, we will hold Plavix until he is seen in the office in a couple of days. Objective Vital signs: Temp Pulse Resp BP Pulse Ox 98.7 F 66 18 115/60 96 07/29/18 04:00 07/29/18 04:00 07/29/18 04:00 07/29/18 04:00 07/29/18 04:00 Narrative: Patient is pleasant, alert, no complaints. Lungs are clear. Heart rate regular. Abdomen soft and nontender. No edema or clubbing or cyanosis. Results Labs on day of discharge: Labs from last 24 hours 07/29/18 07/29/18 07/28/18 07:50 07:50 13:00 WBC 6.1 RBC 3.06 L Hgb 9.3 L 9.9 L Hct 28.7 L 29.4 L MCV 93.7 MCH 30.4 MCHC 32.4 RDW 14.2 Plt Count 167 MPV 9.3 Neut % (Auto) 63.1 Lymph % (Auto) 30.6 [place] % (Auto) 5.1 Eos % (Auto) 0.9 Baso % (Auto) 0.3 Neut # (Auto) 3.8 Lymph # (Auto) 1.9 [place] # (Auto) 0.3 Eos # (Auto) 0.1 Baso # (Auto) 0.0 Sodium 140 Potassium 3.1 L Chloride 106 Carbon Dioxide 26 Anion Gap 11.1 BUN 16 D Creatinine 1.05 D Estimated Creat Clear 86 Estimated GFR 76 Est GFR ( Amer) 92 Glucose 145 H Calcium 8.4 L DS: Diagnosis - Discharge Diagnosis (1) Upper GI bleed Status: Resolved (2) Melena Status: Resolved (3) Blood loss anemia Status: Acute (4) Pyloric channel ulcer Status: Acute Discharge Plan - Patient Discharge Instructions ACTIVITY: Continue current activity DIET: continue same diet - Follow up Plan Follow up with: Oliver Cook MD [Staff Physician] - 1 week Abi Veliz APRN [Nurse Practitioner] - 07/31/18 Disposition: Home, Self-Longterm Medications: Home Medications Medication Instructions Recorded Confirmed Type aspirin 81 mg tablet,delayed 81 mg PO DAILY 07/03/18 07/26/18 History release clopidogrel 75 mg tablet 75 mg PO DAILY 07/03/18 07/26/18 History Furosemide [Furosemide 20mg Tab] 20 mg PO DAILY 07/26/18 07/26/18 History Nicotine [Nicotine Patch] 1 patch TRANSDERMA Q24H 07/26/18 07/26/18 History buPROPion HCl [Bupropion HCl Sr] 150 mg PO BID 07/26/18 07/27/18 History Prescriptions/Medication Reconciliation: New Pantoprazole Sodium [Protonix 40mg tablet] 40 mg PO BID 30 Days #60 tab Sucralfate [Carafate 1gm/10mL Susp Udc] 1 gm PO ACHS 30 Days #120 tab Continue aspirin 81 mg tablet,delayed release 81 mg PO DAILY buPROPion HCl [Bupropion HCl Sr] 150 mg PO BID Nicotine [Nicotine Patch] 1 patch TRANSDERMA Q24H Furosemide [Furosemide 20mg Tab] 20 mg PO DAILY Discontinued clopidogrel 75 mg tablet 75 mg PO DAILY
== END 2018-07-29 09:30 | disposition home or self-care (01) ==
LOC: ER 14:40 → 2ND 16:12
PROVIDERS: ADMIT Family Medicine; ATTEND Internal Medicine Adolescent Medicine

== ENCOUNTER → 2018-07-31 12:21 | Outpatient (CLI) | payer MEDICAID, SELFPAY ==
[2018-07-31 14:22] LABS: Basophils % 0.1 % (0.1-2.0); Eosinophils # 0.1 K/mm3 (0.0-0.4); Eosinophils % 1.7 % (0.1-12.0); Hematocrit 29.4 % (42.0-52.0); Hemoglobin 9.4 g/dL (14.1-18.0); Lymphocytes # 1.8 K/mm3 (0.7-4.5); Lymphocytes % 32.9 K/mm3 (10-50); Mean Corpuscular Hemoglobin 30.5 pg (27.0-31.2); Mean Corpuscular Volume 95.2 fl (80-94); Mean Platelet Volume 9.5 fl (7.4-10.4); Monocytes # 0.3 K/mm3 (0.1-1.0); Monocytes % 5.2 % (1.7-9.3); Neutrophils # 3.3 K/mm3 (1.8-7.8); Neutrophils % 60.1 % (37.0-80.0); Platelet Count 222 K/mm3 (142-424); Red Blood Count 3.09 M/mm3 (4.60-6.20); Red Cell Distribution Width 13.6 % (11.5-17.5); White Blood Count 5.5 K/mm3 (4.8-10.8)
== END ==
PROVIDERS: PCP Nurse Practitioner Family; Visit Provider Nurse Practitioner Family
DX: K25.0 Acute gastric ulcer with hemorrhage (principal); K92.2 Gastrointestinal hemorrhage, unspecified
CPT/HCPCS: 36415; 85025

== ENCOUNTER → 2018-12-26 08:11 | Outpatient (CLI) | payer MEDICAID, SELFPAY ==
--- NOTE | 2018-12-26 08:22 | CT_ITS ---
CT abdomen wo con CLINICAL INDICATION: Left flank pain ITS.REASON: abdominal pain ORDERING PHYSICIAN: Demetrius Parisi MD PATIENT AGE: 43 years COMPARISON: None TECHNIQUE: Axial images obtained with sagittal and coronal reformats. All CT scans at the facility use one or more dose reduction, viz: automated exposure control, ma/kV adjustment per patient size (including targeted exams where dose is matched to indication, i.e. head), or iterative reconstruction technique. PROCEDURE: Oral Contrast: None IV Contrast: None . FINDINGS: There are mild fibrotic or atelectatic changes within the right middle lobe. Incidental note made of coronary artery calcifications. Normal heart size. There are diffuse fatty liver infiltration. No radio opaque gallstones. The spleen, adrenal glands, pancreas, and gallbladder have an unremarkable unenhanced appearance. Nonobstructing 3 mm stone in the mid polar region of the left kidney. A 2 mm nonobstructing stone is present in the lower pole the right kidney. On image #97 there is a small focal area of increased density within the right distal ureter. This could be due to small stone at 2 mm versus artifact. There is minimal ectasia of the right ureter compared to the left side. The distal ureters and urinary bladder are not imaged. IMPRESSION: 1. Nonobstructing bilateral renal calculi. 2. Possible tiny stone in the distal right ureter
== END ==
PROVIDERS: PCP Internal Medicine Adolescent Medicine; Visit Provider Internal Medicine Cardiovascular Disease
DX: R10.9 Unspecified abdominal pain (principal); I73.9 Peripheral vascular disease, unspecified; M79.604 Pain in right leg; R94.30 Abnormal result of cardiovascular function study, unspecified
CPT/HCPCS: 74150

== ENCOUNTER → 2019-01-23 09:13 | Outpatient (CLI) | payer MEDICAID, SELFPAY ==
[2019-01-23 09:28] LABS: Hematocrit 36.5 % (42.0-52.0); Hemoglobin 12.4 g/dL (14.1-18.0)
[2019-01-23 09:29] LABS: Blood Urea Nitrogen 16 mg/dL (7-18); Creatinine,Serum 1.25 mg/dL (0.70-1.30); Estimated Glomerular Filt Rate 62 ml/min (>60); GFR (African American) 76 ML/MIN (>60)
== END ==
PROVIDERS: Visit Provider Internal Medicine
DX: I73.9 Peripheral vascular disease, unspecified (principal); R09.89 Other specified symptoms and signs involving the circulatory and respiratory systems; I25.10 Atherosclerotic heart disease of native coronary artery without angina pectoris
CPT/HCPCS: 36415; 82565; 84520; 85014; 85018

== ENCOUNTER → 2019-02-26 10:35 | Outpatient (CLI) | payer MEDICAID, SELFPAY ==
[2019-02-26 11:49] LABS: Basophils % 0.3 % (0.1-2.0); Eosinophils # 0.1 K/mm3 (0.0-0.4); Hematocrit 39.4 % (42.0-52.0); Lymphocytes # 2.1 K/mm3 (0.7-4.5); Lymphocytes % 35.4 % (10-50); Mean Corpuscular HGB Conc 33.1 g/dL (31.8-35.4); Mean Corpuscular Hemoglobin 29.6 pg (27.0-31.2); Mean Corpuscular Volume 89.3 fl (80-94); Monocytes # 0.3 K/mm3 (0.1-1.0); Monocytes % 4.8 % (1.7-9.3); Neutrophils # 3.4 K/mm3 (1.8-7.8); Neutrophils % 57.5 % (37.0-80.0); Platelet Count 258 K/mm3 (142-424); Red Blood Count 4.41 M/mm3 (4.60-6.20); Red Cell Distribution Width 14.1 % (11.5-17.5)
[2019-02-26 11:51] LABS: Anion Gap 19.8 mEq/L (5-15); Blood Urea Nitrogen 16 mg/dL (7-18); Calcium 9.2 mg/dL (8.5-10.1); Carbon Dioxide 21 mmol/L (21.0-32.0); Chloride 104 mmol/L (98-107); Creatinine,Serum 1.15 mg/dL (0.70-1.30); Estimated Glomerular Filt Rate 69 ml/min (>60); GFR (African American) 83 ML/MIN (>60); Glucose 90 mg/dL (74-106); Potassium 3.8 mmoL/L (3.5-5.1); Sodium 141 mmol/L (136-145)
== END ==
PROVIDERS: Visit Provider Internal Medicine Cardiovascular Disease
DX: I25.10 Atherosclerotic heart disease of native coronary artery without angina pectoris (principal); I73.9 Peripheral vascular disease, unspecified; Z87.19 Personal history of other diseases of the digestive system; I11.9 Hypertensive heart disease without heart failure
CPT/HCPCS: 36415; 80048; 85025

== ENCOUNTER → 2019-03-10 14:50 | Outpatient (CLI) | payer MEDICAID, SELFPAY | PROVIDERS: PCP Family Medicine; Visit Provider Internal Medicine Cardiovascular Disease | DX: G47.9 Sleep disorder, unspecified (principal); R06.83 Snoring; G47.00 Insomnia, unspecified; R40.0 Somnolence; I25.10 Atherosclerotic heart disease of native coronary artery without angina pectoris | CPT/HCPCS: 95806 ==

== ENCOUNTER 2020-09-15 10:07 | Emergency (ER) | payer MEDICAID, SELFPAY ==
[2020-09-15 10:08] VITALS: BP 155/75; PULSE 82; RESP 20; TEMP 37.1; O2SAT 98; BMI 29.7
--- NOTE | 2020-09-15 10:21 | HMH.EDGENADL ---
ED Disposition Clinical Impression: Effusion, left knee Osteoarthritis of left knee Qualifiers: Osteoarthritis type: post-traumatic Qualified Code(s): M17.32 - Unilateral post-traumatic osteoarthritis, left knee Left leg DVT Qualifiers: Affected thrombotic vein of extremity: unspecified lower extremity distal vein Chronicity: acute Qualified Code(s): I82.4Z2 - Acute embolism and thrombosis of unspecified deep veins of left distal lower extremity Disposition: Home, Self-Care Condition on Discharge: Fair Instructions: How to Use Crutches, DI for Deep Vein Thrombosis, DI for Osteoarthritis, DI for Knee Effusion Additional Instructions: Rest, elevate your leg, and use ice to your left knee 20 minutes every 4 hours. Use crutches. Take Xarelto as prescribed. Restart your previous medications as prescribed. See Dr. Hernandez in the office tomorrow, call to schedule that appointment time. See Dr. Gamez in the office as scheduled. Percocet as needed for pain. Additional instructions for CONTROLLED SUBSTANCES: You have been prescribed a medication that is a controlled substance. Controlled substances include pain medications known as opiates and sedative nerve medications known as benzodiazepines. Tramadol, fioricet, and gabapentin are also controlled substances. Some common opiates include: Codeine (such as Tylenol #3) Hydrocodone (Vicodin, Lortab, Lorcet, [place]) Oxycodone (Percocet, Percodan, Oxycodone, Oxy IR) Some common benzodiazepines include: Diazepam (Valium) Lorazepam (Ativan) Alprazolam (Xanax) Clonazepam (Klonopin) Oxazepam (Serax) All of these controlled substances are highly addictive and frequently abused. Misuse can and frequently does lead to addiction as well as overdose and . Medication should be stored in a locked cabinet or other secure storage unit. Do not store the medication in a motor vehicle. Short term supplies, 3 days or less, are prescribed because of the highly addictive nature of the medication. Any of the controlled substance medication NOT taken should be disposed of properly and NOT SAVED. The recommended method of disposing of unused medications is: Place the medicines in a sealable plastic bag. If the medicine is a solid, crush it or add water to dissolve it. Add something undesirable (cat litter, coffee grounds, etc.) Dispose of sealed bag in household trash Do not flush or pour unused medicines down a sink or drain. Controlled substances should not be shared, given away or sold. Because of the addictive nature and frequent abuse, these medications are sometimes stolen. These medications should be kept in a safe place where they cannot be stolen. Do not keep them in your car or purse. Lost or stolen prescriptions for controlled substances WILL NOT BE REFILLED in this emergency department, regardless of whether a police report was filed. Prescriptions: Oxycodone HCl/Acetaminophen [Percocet 10-325 mg Tablet] 1 tab PO Q6HP PRN #15 tab PRN Reason: Moderate To Severe Pain [facility] Aspirin [Aspirin 81mg EC Tab] 81 mg PO DAILY #30 tablet.dr Transmission Status: [facility] Atorvastatin Calcium [Lipitor 40mg Tablet*] 40 mg PO HS #30 tab Transmission Status: Received by [facility] Clopidogrel Bisulfate [Plavix 75mg Tab] 75 mg PO DAILY #30 tab Transmission Status: Received by [facility] Rivaroxaban [Xarelto 15mg tablet] 15 mg PO BID #42 tab Transmission Status: Received by [facility] Referrals: PCP,No [Primary Care Provider] - - Critical Care Critical Care Time: No Attestation: On , the high probability of a clinically significant, sudden or life threatening deterioration of the following system(s) required my full and direct attention, intervention and personal management. The time I documented below is in addition to
--- NOTE | 2020-09-15 10:29 | PC.NURSE ---
UNABLE TO OBTAIN PEDAL PULSE WITH DOPPLER
[2020-09-15 10:34] LABS: Basophils % 0.2 % (0.1-2.0); Eosinophils # 0.1 K/mm3 (0.0-0.4); Eosinophils % 0.6 % (0.1-12.0); Hematocrit 44.2 % (42.0-52.0); Hemoglobin 14.8 g/dL (14.1-18.0); Lymphocytes % 24.3 % (10-50); Mean Corpuscular HGB Conc 33.5 g/dL (31.8-35.4); Mean Corpuscular Hemoglobin 30.4 pg (27.0-31.2); Mean Corpuscular Volume 90.9 fl (80-94); Mean Platelet Volume 8.8 fl (7.4-10.4); Monocytes # 0.6 K/mm3 (0.1-1.0); Monocytes % 7.1 % (1.7-9.3); Neutrophils # 5.6 K/mm3 (1.8-7.8); Neutrophils % 67.9 % (37.0-80.0); Platelet Count 192 K/mm3 (142-424); Red Blood Count 4.86 M/mm3 (4.60-6.20); Red Cell Distribution Width 13.8 % (11.5-17.5); White Blood Count 8.2 K/mm3 (4.8-10.8)
--- NOTE | 2020-09-15 10:34 | CA_ITS ---
APPROVED REPORT Left Lower Extremity Venous Study for DVT. 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 Other veins of the left lower extremity are normal. Conclusion Study suggests a thrombus in the distal GSV of the left lower extremity. Other veins of the left lower extremity are normal. Critical Notification Physician Notified Date: 09/15/2020 Time: 11:24 Physician Name: Dr Ortiz Electronically signed by : Monty Jeffery MD 09/15/2020 18:00:11
--- NOTE | 2020-09-15 10:35 | XR_ITS ---
PROCEDURE: XR KNEE LT 3V CLINICAL INDICATION: PAIN Left knee pain COMPARISON: No exams were available for comparison FINDINGS: There are severe osteoarthritic changes involving all 3 compartments with prominent osteophytes. There is a small suprapatellar effusion. There is a vascular stent in the lower thigh. No acute fracture or dislocation. Other findings:None. IMPRESSION: Severe osteoarthritis with knee joint effusion Dictated by: Monty Jeffery MD 09/15/2020 13:04 Monty Jeffery MD in [place] 09/15/2020 13:04
[2020-09-15 10:37] LABS: Chloride 104 mmol/L (98-107); Potassium 3.9 mmoL/L (3.5-5.1); Sodium 138 mmol/L (136-145)
[2020-09-15 10:39] LABS: Blood Urea Nitrogen 17 mg/dl (9-20); Creatinine Clearance Estimated 124 mL/min (50-200); Estimated Glomerular Filt Rate 90 ml/min (>60); GFR (African American) 109 ML/MIN (>60)
[2020-09-15 10:40] LABS: Alanine Aminotransferase 97 U/L (12-78); Albumin Level 4.5 g/dl (3.5-5.0); Albumin/Globulin Ratio 1.3 (1.1-1.8); Alkaline Phosphatase 89 U/L (38-126); Anion Gap 9.9 mEq/L (5-15); Aspartate Amino Transferase 45 U/L (17-59); Bilirubin,Total 0.6 mg/dl (0.2-1.3); Calcium 9.2 mg/dl (8.4-10.2); Carbon Dioxide 28 mmol/L (22.0-30.0); Globulin 3.5 g/dL (1.3-3.2); Glucose 103 mg/dl (74-100)
[2020-09-15 10:51] LABS: Uric Acid 7.5 mg/dl (3.5-8.5)
--- NOTE | 2020-09-15 11:03 | PC.NURSE ---
vascular lab at bedside
[2020-09-15 11:13] VITALS: PULSE 70; O2SAT 99
[2020-09-15 11:24] LABS: Erythrocyte Sedimentation Rate 28 mm/hr (0-15)
--- NOTE | 2020-09-15 11:36 | PC.NURSE ---
Dr Ortiz speaking to Dr Gamez
[2020-09-15 12:15] VITALS: BP 131/74; PULSE 78; RESP 18; TEMP 36.6; O2SAT 98
--- NOTE | 2020-09-15 12:17 | PC.NURSE ---
CRUTCHES GIVEN INSTRUCTIONS GIVEN PT RETURNED DEMONSTRATION
== END 2020-09-15 12:17 | disposition home or self-care (01) ==
PROVIDERS: Emergency Provider Emergency Medicine
DX: M17.32 Unilateral post-traumatic osteoarthritis, left knee (principal); I82.4Z2 Acute embolism and thrombosis of unspecified deep veins of left distal lower extremity; I25.10 Atherosclerotic heart disease of native coronary artery without angina pectoris; I73.9 Peripheral vascular disease, unspecified; Z87.891 Personal history of nicotine dependence; Z79.899 Other long term (current) drug therapy
CPT/HCPCS: 73562; 80053; 84550; 85025; 85651; 86140; 93971; 96374; 96375; 99283; J2405

== ENCOUNTER → 2020-09-16 15:55 | Outpatient (CLI) | payer MEDICAID, SELFPAY ==
--- NOTE | 2020-09-16 15:59 | XR_ITS ---
PROCEDURE: XR KNEE LT 4V CLINICAL INDICATION: knee pain COMPARISON: CR XR KNEE LT 3V from 09/15/2020 FINDINGS: There are severe osteoarthritic changes involving all 3 compartments with a small suprapatellar effusion. Prominent osteophytes are present. There is mild lateral subluxation of tibia by 4 mm. There is a vascular stent in the distal thigh. There are some dysplastic changes of the distal femur and the proximal tibia from the osteoarthritis with a small subchondral cystic area involving the medial femoral condyle. IMPRESSION: Severe osteoarthritis with small knee joint effusion Dictated by: Monty Jeffery MD 09/16/2020 17:54 Monty Jeffery MD in [place] 09/16/2020 17:54
== END ==
PROVIDERS: PCP Emergency Medicine; Visit Provider Orthopaedic Surgery
DX: M25.562 Pain in left knee (principal)
CPT/HCPCS: 73564

== ENCOUNTER → 2020-12-29 14:18 | Outpatient (CLI) | payer OTHER, SELFPAY ==
--- NOTE | 2020-12-29 14:27 | CA_ITS ---
APPROVED REPORT Bilateral Lower Extremity Venous Study for DVT. Electrical Laboratory Technician: Latoya RCS, RVS Indications Left SVT of the GSV 09/2020, PAD with (3)Femoral stents. Vein Imaging POP (R): Compressible CFV (L): compressive, spontaneous, phasic, augmentation SFJ (L): compressive, spontaneous, phasic, augmentation FEM (L): compressive, spontaneous, phasic, augmentation POP (L): compressive, spontaneous, phasic, augmentation DFV (L): compressive, spontaneous, phasic, augmentation PTV (L): compressive, spontaneous, phasic, augmentation GSV (L): compressive, spontaneous, phasic, augmentation SSV (L): compressive, spontaneous, phasic, augmentation Peroneals (L):compressive, spontaneous, phasic, augmentation GAS (L): compressive, spontaneous, phasic, augmentation Findings Color flow duplex demonstrates no evidence of DVT of the following left lower extremity Veins:Common Femoral Vein, Femoral Vein, Popliteal Vein, Peroneal Veins. Color flow duplex demonstrates no evidence of SVT of the Small and Great Saphenous Veins. Conclusion Color flow duplex demonstrates no evidence of DVT of the following left lower extremity Veins:Common Femoral Vein, Femoral Vein, Popliteal Vein, Peroneal Veins. Color flow duplex demonstrates no evidence of SVT of the Small and Great Saphenous Veins. Electronically signed by : Monty Jeffery MD 12/29/2020 18:23:15
== END ==
PROVIDERS: PCP Emergency Medicine; Visit Provider Internal Medicine Cardiovascular Disease
DX: I70.212 Atherosclerosis of native arteries of extremities with intermittent claudication, left leg (principal)
CPT/HCPCS: 93971

== ENCOUNTER → 2021-01-06 12:54 | Outpatient (CLI) | payer OTHER, SELFPAY ==
--- NOTE | 2021-01-06 12:55 | US_ITS ---
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: Kortney Smith RVT Indications Claudication: Rest Pain: History of Smoking Risk Factors Hyperlipidemia History of Smoking Surgery/Intervention Stent : Medications Plavix Aspirin Pressures/Indices Right Indices Left Indices Brachial 149.00 mmHg Brachial 140.00 mmHg Low Thigh 133.00 mmHg 0.89 Low Thigh 127.00 mmHg 0.85 Calf 144.00 mmHg 0.97 Calf 99.00 mmHg 0.66 Ankle(PT) 150.00 mmHg 1.01 Ankle(PT) 91.00 mmHg 0.61 Ankle(DP) 143.00 mmHg 0.96 Ankle(DP) 112.00 mmHg 0.75 Digit 138.00 mmHg 0.93 Digit 85.00 mmHg 0.57 Findings RT NIMA:1.01 LT NIMA:0.75 RT TBI:0.93 LT TBI:0.57 DAMPENED WAVEFORMS ON THE LEFT NORMAL PULSES BILATERAL Conclusion RT NIMA:1.01 LT NIMA:0.75 RT TBI:0.93 LT TBI:0.57 DAMPENED WAVEFORMS ON THE LEFT MODERATE LEFT ARTERIAL DISEASE NORMAL PULSES BILATERAL Electronically signed by : Monty Jeffery MD 01/06/2021 16:20:16
== END ==
PROVIDERS: PCP Emergency Medicine; Visit Provider Internal Medicine Cardiovascular Disease
DX: I73.9 Peripheral vascular disease, unspecified (principal); I82.409 Acute embolism and thrombosis of unspecified deep veins of unspecified lower extremity; I25.10 Atherosclerotic heart disease of native coronary artery without angina pectoris; I11.9 Hypertensive heart disease without heart failure; E78.5 Hyperlipidemia, unspecified; R20.8 Other disturbances of skin sensation
CPT/HCPCS: 93923

== ENCOUNTER 2021-01-17 14:45 | Emergency (ER) | payer OTHER, SELFPAY ==
[2021-01-17 14:49] VITALS: RESP 18; TEMP 37.2; O2SAT 96; BMI 31.3
--- NOTE | 2021-01-17 15:08 | HMH.EDGENADL ---
ED Disposition Clinical Impression: Dehydration, Food poisoning Diarrhea Qualifiers: Diarrhea type: unspecified type Qualified Code(s): R19.7 - Diarrhea, unspecified Disposition: Home, Self-Care Condition on Discharge: Good Instructions: DI for Food Poisoning, DI for Diarrhea and Traveler's Diarrhea -- Adult, DI for Dehydration -- Adult Additional Instructions: You have been evaluated for diarrhea, dehydration. Please take Zofran as needed for nausea or vomiting. Drink fluids to stay hydrated. Follow-up with your primary care doctor in 1 to 2 days. Return to the emergency department if you have any new or worsening symptoms, abdominal pain, other concerns. Prescriptions: ondansetron HCL [Ondansetron 4mg tab*] 4 mg PO TIDP PRN #12 tab PRN Reason: Nausea Transmission Status: Pending to [facility] Referrals: Clive Nunn MD [Primary Care Provider] - Time of Disposition: 17:26 - Critical Care Critical Care Time: No Attestation: On 01/17/21, the high probability of a clinically significant, sudden or life threatening deterioration of the following system(s) required my full and direct attention, intervention and personal management. The time I documented below is in addition to time spent performing reported procedures but includes the following listed in this critical care notation. Medical Decision Making - Medical Records Medical records reviewed: Yes: I reviewed the patient's medical records. - Michele Inquiry Pt receiving controlled substance: No Vital Signs: 01/17/21 14:49 01/17/21 16:05 01/17/21 16:36 Temperature 98.9 F Temperature Source Oral Respiratory Rate 18 Blood Pressure 138/84 101/52 L Blood Pressure Mean 102 67 02 Sat by Pulse Oximetry 96 Oxygen Delivery Method Room Air 01/17/21 17:00 Temperature Temperature Source Respiratory Rate Blood Pressure 129/81 Blood Pressure Mean 93 02 Sat by Pulse Oximetry Oxygen Delivery Method - Lab Data Lab Results 01/17/21 14:57: WBC 9.1, RBC 5.28, Hgb 16.2, Hct 49.6, MCV 93.8, MCH 30.6, MCHC 32.6, RDW 14.0, Plt Count 223, MPV 7.8, Neut % (Auto) 88.1 H, Lymph % (Auto) 7.1 L, [place] % (Auto) 3.6, Eos % (Auto) 1.0, Baso % (Auto) 0.2, Neut # (Auto) 8.0 H, Lymph # (Auto) 0.6 L, [place] # (Auto) 0.3, Eos # (Auto) 0.1, Baso # (Auto) 0.0, Total Counted 100, Neutrophils % (Manual) 89 H, Band Neutrophils % 2.0, Lymphocytes % (Manual) 6 L, Monocytes % (Manual) 3, Platelet Estimate Normal, RBC Morphology Normal 01/17/21 14:57: Sodium 142, Potassium 4.4, Chloride 105, Carbon Dioxide 24, Anion Gap 17.4 H, BUN 21 H, Creatinine 1.20, Estimated Creat Clear 98, Estimated GFR 65, Est GFR ( Amer) 79, Glucose 140 H, Calcium 9.9, Total Bilirubin 0.6, AST 85 H, ALT 128 H, Alkaline Phosphatase 101, Total Protein 9.1 H, Albumin 5.2 H, Globulin 3.9 H, Albumin/Globulin Ratio 1.3, Lipase 74 Result diagrams: 01/17/21 14:57 01/17/21 14:57 Orders (Tests/Meds): ED MEDICATIONS Discontinued Medications Generic Name Dose Route Start Last Admin Trade Name Freq PRN Reason Stop Dose Admin Sodium Chloride 1,000 mls @ 999 mls/hr 01/17/21 15:00 01/17/21 15:05 Sod Chlor 0.9% 1000ml Bag IV 01/17/21 16:00 999 mls/hr .Q1H1M MATT Administration Sodium Chloride 1,000 mls @ 999 mls/hr 01/17/21 16:00 01/17/21 16:27 Sod Chlor 0.9% 1000ml Bag IV 01/17/21 17:00 999 mls/hr .Q1H1M MATT Administration Ondansetron HCl 4 mg 01/17/21 14:54 01/17/21 15:04 Ondansetron 4mg/2ml Vial IV 01/17/21 14:55 4 mg ONCE ONE Administration Medical Decision Narrative: In summary this is a 45-year-old male presenting to the emergency department with abdominal cramps, diarrhea, generalized malaise. Patient clinically stable on arrival. Vital signs within normal limits. Afebrile. Symptoms have been present for the last 3 hours. Concern for acute diarrheal illness. Cannot exclude acute pancreatitis or other more sinister pat
[2021-01-17 15:22] LABS: Basophils % 0.2 % (0.1-2.0); Eosinophils # 0.1 K/mm3 (0.0-0.4); Hematocrit 49.6 % (42.0-52.0); Hemoglobin 16.2 g/dL (14.1-18.0); Lymphocytes # 0.6 K/mm3 (0.7-4.5); Lymphocytes % 7.1 % (10-50); Mean Corpuscular HGB Conc 32.6 g/dL (31.8-35.4); Mean Corpuscular Hemoglobin 30.6 pg (27.0-31.2); Mean Corpuscular Volume 93.8 fl (80-94); Mean Platelet Volume 7.8 fl (7.4-10.4); Monocytes # 0.3 K/mm3 (0.1-1.0); Monocytes % 3.6 % (1.7-9.3); Neutrophils % 88.1 % (37.0-80.0); Platelet Count 223 K/mm3 (142-424); Red Blood Count 5.28 M/mm3 (4.60-6.20); White Blood Count 9.1 K/mm3 (4.8-10.8)
[2021-01-17 15:23] LABS: Alanine Aminotransferase 128 U/L (12-78); Albumin Level 5.2 g/dl (3.5-5.0); Albumin/Globulin Ratio 1.3 (1.1-1.8); Alkaline Phosphatase 101 U/L (38-126); Anion Gap 17.4 mEq/L (5-15); Aspartate Amino Transferase 85 U/L (17-59); Bilirubin,Total 0.6 mg/dl (0.2-1.3); Blood Urea Nitrogen 21 mg/dl (9-20); Calcium 9.9 mg/dl (8.4-10.2); Carbon Dioxide 24 mmol/L (22.0-30.0); Chloride 105 mmol/L (98-107); Creatinine Clearance Estimated 98 mL/min (50-200); Estimated Glomerular Filt Rate 65 ml/min (>60); GFR (African American) 79 ML/MIN (>60); Globulin 3.9 g/dL (1.3-3.2); Glucose 140 mg/dl (74-100); Lipase 74 U/L (23-300); Potassium 4.4 mmoL/L (3.5-5.1); Sodium 142 mmol/L (136-145); Total Protein,Serum 9.1 g/dl (6.3-8.2)
[2021-01-17 15:25] LABS: MANUAL DIFFERENTIAL MANUAL DIFFERENTIAL (MANUAL DIFF)
[2021-01-17 15:46] LABS: Lymphocytes % 6 % (10-50); Monocytes % 3 % (2-9); Neutrophils % 89 % (42-76); Platelet Estimate Normal; RBC Morphology Normal; Total Cells Counted 100
[2021-01-17 16:05] VITALS: BP 138/84
[2021-01-17 16:36] VITALS: BP 101/52
[2021-01-17 17:00] VITALS: BP 129/81
[2021-01-17 17:34] VITALS: BP 110/74; PULSE 74; RESP 16; TEMP 36.6; O2SAT 98
== END 2021-01-17 17:36 | disposition home or self-care (01) ==
PROVIDERS: Emergency Provider Emergency Medicine; PCP Emergency Medicine
DX: E86.0 Dehydration (principal); A05.9 Bacterial foodborne intoxication, unspecified; I25.10 Atherosclerotic heart disease of native coronary artery without angina pectoris; E78.5 Hyperlipidemia, unspecified; I73.9 Peripheral vascular disease, unspecified; Z87.891 Personal history of nicotine dependence; Z79.899 Other long term (current) drug therapy
CPT/HCPCS: 80053; 83690; 85007; 85025; 96365; 96367; 96375; 99283; J2405

== ENCOUNTER → 2021-01-19 16:41 | Outpatient (CLI) | payer OTHER, SELFPAY ==
[2021-01-19 16:58] LABS: Basophils % 0.4 % (0.1-2.0); Eosinophils # 0.1 K/mm3 (0.0-0.4); Eosinophils % 1.3 % (0.1-12.0); Hematocrit 40.9 % (42.0-52.0); Hemoglobin 13.5 g/dL (14.1-18.0); Lymphocytes # 1.6 K/mm3 (0.7-4.5); Lymphocytes % 31.2 % (10-50); Mean Corpuscular Hemoglobin 30.4 pg (27.0-31.2); Mean Platelet Volume 7.9 fl (7.4-10.4); Monocytes # 0.4 K/mm3 (0.1-1.0); Monocytes % 7.9 % (1.7-9.3); Neutrophils # 3.1 K/mm3 (1.8-7.8); Neutrophils % 59.1 % (37.0-80.0); Platelet Count 175 K/mm3 (142-424); Red Blood Count 4.44 M/mm3 (4.60-6.20); Red Cell Distribution Width 13.7 % (11.5-17.5); White Blood Count 5.2 K/mm3 (4.8-10.8)
[2021-01-19 18:36] LABS: Anion Gap 15.9 mEq/L (5-15); Blood Urea Nitrogen 19 mg/dl (9-20); Calcium 9.4 mg/dl (8.4-10.2); Carbon Dioxide 25 mmol/L (22.0-30.0); Chloride 107 mmol/L (98-107); Estimated Glomerular Filt Rate 72 ml/min (>60); GFR (African American) 87 ML/MIN (>60); Glucose 103 mg/dl (74-100); Potassium 3.9 mmoL/L (3.5-5.1); Sodium 144 mmol/L (136-145)
[2021-01-19 19:34] LABS: Coronavirus 19 IgG Antibody Positive (Negative); Coronavirus 19 IgM Antibody Negative (Negative)
== END ==
PROVIDERS: Visit Provider Urology
DX: Z01.812 Encounter for preprocedural laboratory examination (principal); Z20.822 Contact with and (suspected) exposure to COVID-19; I25.10 Atherosclerotic heart disease of native coronary artery without angina pectoris; I11.9 Hypertensive heart disease without heart failure; E78.5 Hyperlipidemia, unspecified; I73.9 Peripheral vascular disease, unspecified; I82.409 Acute embolism and thrombosis of unspecified deep veins of unspecified lower extremity; R20.8 Other disturbances of skin sensation
CPT/HCPCS: 36415; 80048; 85025; 86328

== ENCOUNTER 2021-01-20 08:34 | Day surgery (SDC) | payer OTHER, SELFPAY ==
[2021-01-20] VITALS (19 sets, daily range): BP systolic 119–167; BP diastolic 69–91; PULSE 52–69; RESP 18–20; TEMP 36.7; O2SAT 93–96; BMI 33.2
--- NOTE | 2021-01-20 07:42 | IR_ITS ---
APPROVED REPORT Patient Location: Outpatient [employer] Assembler And Gluer: RANI Lam RT (R) PROCEDURES Right femoral arterial access Catheter placement in the left femoral artery Left femoral artery antegrade angiogram with unilateral runoff to the left foot Catheter placed into the left common iliac artery Left common iliac artery antegrade angiogram Catheter placement on the right common iliac artery Right common iliac artery iliofemoral angiogram INDICATION Known peripheral artery disease, Abnormal NIMA Informed consent was obtained prior to the procedure. COMPLICATIONS None Estimated Blood Loss: less than 10ml TECHNIQUE 1% lidocaine used anesthetize right groin the right femoral artery was accessed via the Salinger technique and a 5 [place] sheath was placed in the right femoral artery. A rim catheter was advanced to the distal abdominal aorta and used to cannulate the left common iliac artery. The wire was advanced under fluoroscopic guidance the catheter was advanced to the left femoral artery for angiography and unilateral runoff was performed. Catheter was pulled back to the distal abdominal aorta with the catheter tip in the proximal portion of the left common iliac artery and left common iliac artery iliofemoral angiography was performed. The catheter was then pulled back to the right common femoral artery and angiography was performed. At the end of the procedure the patient was transferred to the postop holding area stable condition for sheath removal ANGIOGRAPHIC RESULTS The left common iliac artery has an eccentric proximal 20 to 30% stenosis with a distal eccentric 30% stenosis. The left internal iliac artery is patent. The left common femoral artery has mild atheromatous plaque. The left profunda femoris artery is normal. The left superficial femoral artery is patent in its proximal segment but appears to have very proximal ostial 90% stenosis. The vessel is then occluded at Juan [place]'s canal and reconstitutes in the proximal popliteal artery through a vast collateral network. The left popliteal artery is patent and has two-vessel runoff below the knee from the anterior tibialis artery and the peroneal artery. The posterior tibialis artery appears proximally occluded The right common iliac artery has a stent in the ostial proximal segment which is widely patent with minimal in-stent restenosis. The right external iliac artery has a 50% eccentric stenosis. The right common femoral artery is normal. The proximal portion of the right superficial femoral artery and right profunda femoris artery is visualized and patent IMPRESSION Peripheral artery disease as described above PLAN 1. I strongly recommend this young gentleman get on an aggressive exercise program. Patient's best long-term patency is exercising and bolstering the collateral network which is already formed. Stenting the popliteal and superficial femoral artery will not have long-term patency in this young gentleman and will almost certainly occlude in the future. Unless patient has limb threatening ischemia or poorly healing ulcers he would do much better with aggressive exercise program and medical management 2. Standard therapy for ischemic polyvascular disease Electronically signed by : Teto Hernandez, 01/20/2021 12:54:43
== END 2021-01-20 14:45 | disposition home or self-care (01) ==
LOC: CATHLAB 08:36
PROVIDERS: PCP Emergency Medicine; Visit Provider Internal Medicine
DX: I70.223 Atherosclerosis of native arteries of extremities with rest pain, bilateral legs (principal); I25.10 Atherosclerotic heart disease of native coronary artery without angina pectoris; I11.9 Hypertensive heart disease without heart failure; E78.5 Hyperlipidemia, unspecified; Z79.899 Other long term (current) drug therapy
CPT/HCPCS: 36247; 75716; 99152; 99153; C1725; C1769; C1894; J1644; Q9967

== ENCOUNTER → 2021-08-23 08:51 | Outpatient (CLI) | payer OTHER, SELFPAY ==
--- NOTE | 2021-08-23 08:51 | CT_ITS ---
Procedure: CT ANGIO ABDOMEN/FEMORAL CLINICAL HISTORY: PAD, claudication COMPARISON: XA CL BOLUS LEROY UNILAT AORTA from 01/20/2021 TECHNIQUE: IV Contrast: 100ml Isovue 370 Axial images obtained with sagittal and coronal reformats. All CT scans at the facility use one or more dose reduction, viz: automated exposure control, ma/kV adjustment per patient size (including targeted exams where dose is matched to indication, i.e. head), or iterative reconstruction technique. FINDINGS: There are atheromatous changes of the abdominal aorta. No evidence of aortic aneurysm. There are 2 right renal arteries. The main right renal artery supplies the mid lower pole of the right kidney with a small renal artery to the upper pole. There is high-grade ostial stenosis of the upper pole renal artery on the right of 80-90 percent. Left renal artery has an unremarkable appearance. There is an occluded right common iliac artery stent. The stent is 6 cm in length and appears occluded throughout its length. There is reconstitution of the distal aspect of the right external carotid artery nearly 8 cm distal to the distal aspect of the stent. Atheromatous changes are present involving the left common iliac with less than 50 percent stenosis proximally. Right lower extremity runoff: Common femoral artery has an unremarkable appearance. Mild atheromatous changes are noted involving the distal aspect of the right femoral artery. Popliteal artery and tibial peroneal trunk are unremarkable. There is 3 vessel runoff to the ankle. Posterior tibial and anterior tibial arteries are patent at the foot Left lower extremity runoff: Mild stenosis of the proximal femoral artery on the left. There is hypertrophy of the profundus branch with a small left femoral artery noted throughout its course. A long the stent is present in the mid aspect of the left superficial femoral artery. The stent or multiple stents measures 15 cm in length. There is occlusion of the most proximal aspect of the stent. The stent is occluded in its mid to distal aspect only reconstituting at its distal most aspect. The left popliteal artery is unremarkable. Small calcific plaque is noted at the proximal aspect of the tibial peroneal trunk with approximately 50 percent stenosis. There is 3 vessel runoff to the ankle on the left. Posterior tibial and anterior tibial arteries are patent at the foot. Other findings include fatty liver, osteoarthritis of the knees left greater than right with right-sided chondrocalcinosis of the knee.. Severe osteoarthritic changes are present of the left knee. IMPRESSION: 1. High-grade ostial stenosis of small right renal artery to the upper pole of the right kidney 2. Occluded right common iliac artery stent 3. Occluded long left superficial femoral artery stent/stents 4. Severe osteoarthritis of the left knee and mild osteoarthritic changes of the right knee Dictated by: Monty Jeffery MD 08/24/2021 08:52 Monty Jeffery MD in [place] 08/24/2021 08:52
== END ==
PROVIDERS: PCP Emergency Medicine; Visit Provider Internal Medicine Cardiovascular Disease
DX: R06.09 Other forms of dyspnea (principal); R09.89 Other specified symptoms and signs involving the circulatory and respiratory systems; I25.10 Atherosclerotic heart disease of native coronary artery without angina pectoris; I73.9 Peripheral vascular disease, unspecified; I11.9 Hypertensive heart disease without heart failure; R94.31 Abnormal electrocardiogram [ECG] [EKG]; E78.2 Mixed hyperlipidemia; Z87.19 Personal history of other diseases of the digestive system; Z87.891 Personal history of nicotine dependence
CPT/HCPCS: 75635; Q9967

== ENCOUNTER → 2021-09-01 12:56 | Outpatient (CLI) | payer OTHER, SELFPAY ==
[2021-09-01 13:54] LABS: Basophils % 0.5 % (0.1-2.0); Eosinophils # 0.1 K/mm3 (0.0-0.4); Eosinophils % 1.1 % (0.1-12.0); Hematocrit 42.8 % (42.0-52.0); Hemoglobin 14.2 g/dL (14.1-18.0); Lymphocytes # 1.8 K/mm3 (0.7-4.5); Lymphocytes % 33.6 % (10-50); Mean Corpuscular HGB Conc 33.3 g/dL (31.8-35.4); Mean Corpuscular Hemoglobin 31.4 pg (27.0-31.2); Mean Corpuscular Volume 94.2 fl (80-94); Mean Platelet Volume 8.8 fl (7.4-10.4); Monocytes # 0.4 K/mm3 (0.1-1.0); Monocytes % 7.2 % (1.7-9.3); Neutrophils # 3.1 K/mm3 (1.8-7.8); Neutrophils % 57.6 % (37.0-80.0); Platelet Count 227 K/mm3 (142-424); Red Blood Count 4.54 M/mm3 (4.60-6.20); Red Cell Distribution Width 13.8 % (11.5-17.5); White Blood Count 5.3 K/mm3 (4.8-10.8)
[2021-09-01 14:29] LABS: Chloride 105 mmol/L (98-107); Sodium 141 mmol/L (136-145)
[2021-09-01 14:30] LABS: Potassium 4.4 mmoL/L (3.5-5.1)
[2021-09-01 14:33] LABS: Anion Gap 14.4 mEq/L (5-15); Blood Urea Nitrogen 19 mg/dl (9-20); Calcium 9.4 mg/dl (8.4-10.2); Carbon Dioxide 26 mmol/L (22.0-30.0); Estimated Glomerular Filt Rate 71 ml/min (>60); GFR (African American) 86 ML/MIN (>60); Glucose 116 mg/dl (74-100)
== END ==
PROVIDERS: Visit Provider Internal Medicine
DX: Z01.812 Encounter for preprocedural laboratory examination (principal); U07.1 COVID-19; R06.00 Dyspnea, unspecified; I25.10 Atherosclerotic heart disease of native coronary artery without angina pectoris; I11.9 Hypertensive heart disease without heart failure; E78.5 Hyperlipidemia, unspecified; I73.9 Peripheral vascular disease, unspecified; R09.89 Other specified symptoms and signs involving the circulatory and respiratory systems; R94.31 Abnormal electrocardiogram [ECG] [EKG]; Z87.19 Personal history of other diseases of the digestive system; Z87.891 Personal history of nicotine dependence
CPT/HCPCS: 36415; 80048; 85025; C9803; U0003; U0005

== ENCOUNTER → 2021-09-11 11:30 | Outpatient (CLI) | payer OTHER, SELFPAY | PROVIDERS: Visit Provider Internal Medicine | DX: Z20.822 Contact with and (suspected) exposure to COVID-19 (principal) | CPT/HCPCS: C9803; U0003; U0005 ==

== ENCOUNTER 2021-09-18 08:32 | Day surgery (SDC) | payer OTHER, SELFPAY ==
[2021-09-18] VITALS (44 sets, daily range): BP systolic 100–227; BP diastolic 55–107; PULSE 53–77; RESP 16; TEMP 37; O2SAT 95–98; BMI 34.1
--- NOTE | 2021-09-18 | IR_ITS ---
APPROVED REPORT Patient Location: [facility]: RANI Matos RT (R) PROCEDURES Left femoral arterial access Right femoral arterial access Catheter placed in the abdominal aorta Abdominal aortography with bilateral iliofemoral angiography Thrombectomy to the right common femoral artery Thrombectomy to the right external iliac artery Thrombectomy to the right common iliac artery Stent deployment to the right common iliac artery Stent deployment to the right external iliac artery INDICATION Peripheral artery disease, Limb threatening ischemia right leg, Abnormal NIMA, Thrombosed right common and external iliac artery with thrombosis of the right common femoral artery, Informed consent was obtained prior to the procedure. COMPLICATIONS NONE Estimated Blood Loss: LESS THAN 10 ML TECHNIQUE 1% lidocaine used to anesthetize the left femoral groin. The left femoral artery was accessed via the Seldinger technique. A 5 Kittitian sheath was placed in the left femoral artery and a pigtail catheter was advanced into the abdominal aorta. Abdominal aortography was performed. At this point 1% lidocaine was used to anesthetize the right groin and the right femoral artery was accessed via the Salinger technique a 6 Kittitian sheath was placed in the right femoral artery. Immediately the wire met resistance which represented a large thrombus. An advantage wire was advanced into the abdominal aorta. Therapeutic heparin was administered giving a therapeutic ACT. At this point a 6 Kittitian sheath was upsized to an 8 Kitt[place] sheath and a penumbra cat 8 was used to perform aspiration through the common femoral artery right external and right common iliac artery. With orthodox of flow and 8 mm x 57 mm balloon mounted an expanding stent was deployed at 14 [place] in the ostial right common iliac artery extending into the external iliac artery. An additional 8 mm x 60 mm self-expanding stent was then an additional 8 mm x 40 mm self-expanding stent was then placed distal to this yet still overlapping it and deployed. An 8 mm balloon was deployed at 8 salena in the last stent that was deployed however it was taken up to 20 salena throughout the common iliac artery and throughout the course of the 2 for stents placed. After achieving excellent angiographic results with wide patency of the right iliofemoral vessel the apparatus was removed the groin was reprepped closure change sheath was removed and hemostasis was achieved using Perclose device patient was transferred the postop putting a stable addition. ANGIOGRAPHIC RESULTS The infrarenal abdominal aorta is widely patent The right common iliac artery is ostially occluded and occluded throughout the external iliac artery and into the right common femoral artery. There is scant filling of the right common femoral artery via a scant collateral network The left common iliac artery is patent with mild atheromatous plaque The left external iliac artery is patent with mild atheromatous plaque while the left internal iliac artery is widely patent The left common femoral artery has mild 10 to 20% atheromatous plaque IMPRESSION Occluded right common iliac artery which extended through the external iliac artery and into the right common femoral artery Successful thrombectomy of the right iliofemoral vessel as described above with orthodox of blood flow and inline flow from the abdominal aorta into the distal right common femoral artery using 3 bare-metal stents PLAN 1. Aspirin 81 mg daily plus Xarelto 2.5 mg p.o. twice daily 2. LDL less than 55 3. Physical therapy 4. Reassess the left superficial femoral artery occlusion within the next couple weeks to determin
[2021-09-18 09:10] LABS: Coronavirus 19, PCR Not Detected (NotDetected); Influenza A, PCR Not Detected (NotDetected); Influenza B, PCR Not Detected (NotDetected)
[2021-09-18 09:36] LABS: Basophils % 0.7 % (0.1-2.0); Eosinophils # 0.1 K/mm3 (0.0-0.4); Eosinophils % 2.5 % (0.1-12.0); Hematocrit 42.3 % (42.0-52.0); Hemoglobin 14.6 g/dL (14.1-18.0); Lymphocytes # 2.4 K/mm3 (0.7-4.5); Lymphocytes % 42.3 % (10-50); Mean Corpuscular HGB Conc 34.6 g/dL (31.8-35.4); Mean Corpuscular Hemoglobin 31.2 pg (27.0-31.2); Mean Corpuscular Volume 90.4 fl (80-94); Mean Platelet Volume 8.1 fl (7.4-10.4); Monocytes # 0.4 K/mm3 (0.1-1.0); Monocytes % 7.5 % (1.7-9.3); Neutrophils # 2.7 K/mm3 (1.8-7.8); Neutrophils % 46.9 % (37.0-80.0); Platelet Count 246 K/mm3 (142-424); Red Blood Count 4.68 M/mm3 (4.60-6.20); Red Cell Distribution Width 13.7 % (11.5-17.5); White Blood Count 5.8 K/mm3 (4.8-10.8)
[2021-09-18 09:47] LABS: Chloride 106 mmol/L (98-107); Potassium 4.2 mmoL/L (3.5-5.1); Sodium 140 mmol/L (136-145)
[2021-09-18 09:50] LABS: Anion Gap 16.2 mEq/L (5-15); Blood Urea Nitrogen 14 mg/dl (9-20); Carbon Dioxide 22 mmol/L (22.0-30.0); Creatinine Clearance Estimated 140 mL/min (50-200); Estimated Glomerular Filt Rate 90 ml/min (>60); GFR (African American) 109 ML/MIN (>60)
[2021-09-18 09:51] LABS: Calcium 9.5 mg/dl (8.4-10.2); Glucose 106 mg/dl (74-100)
--- NOTE | 2021-09-18 15:00 | [facility].PHACLD ---
Yves Jacques has received discharge medication counseling on the following medications: PATIENT WITH PERIPHERAL STENT(S). PATIENT IS CURRENTLY TAKING ASPIRIN 81 MG EC DAILY, ATORVASTATIN 40 MG HS, AND CLOPIDOGREL 75 MG DAILY.
[2021-09-18 16:04] LABS: CATHL Activated Clotting Time 293 SEC (74-125)
[2021-09-18 16:05] LABS: CATHL Activated Clotting Time > 400 SEC (74-125)
== END 2021-09-18 17:44 | disposition home or self-care (01) ==
LOC: CATHLAB 08:33
PROVIDERS: PCP Emergency Medicine; Visit Provider Internal Medicine
DX: I70.223 Atherosclerosis of native arteries of extremities with rest pain, bilateral legs (principal); I77.1 Stricture of artery; Z20.822 Contact with and (suspected) exposure to COVID-19; I70.92 Chronic total occlusion of artery of the extremities; I11.9 Hypertensive heart disease without heart failure; Z79.899 Other long term (current) drug therapy; Z79.01 Long term (current) use of anticoagulants
CPT/HCPCS: 37186; 37221; 37223; 80048; 85025; 85347; 99152; 99153; C1725; C1760; C1769; C1876; C1894; C9803; J1644; Q9966; U0003; U0005

== ENCOUNTER → 2021-09-27 11:56 | Outpatient (CLI) | payer OTHER, SELFPAY ==
--- NOTE | 2021-09-27 11:56 | CA_ITS ---
APPROVED REPORT Clinical Science Liaison: Sosa Elias RDCS Indications Leg Pain Findings Groin: Right Negative Findings POST 1 WEEK CARDIAC CATH NEGATIVE FOR PSUEDU Conclusion POST 1 WEEK CARDIAC CATH NEGATIVE FOR PSUEDU Electronically signed by : Monty Jeffery MD 09/27/2021 15:07:48
== END ==
PROVIDERS: PCP Emergency Medicine; Visit Provider Nurse Practitioner Family
DX: I77.0 Arteriovenous fistula, acquired (principal)
CPT/HCPCS: 93926

== ENCOUNTER → 2021-10-25 10:47 | Outpatient (CLI) | payer OTHER, SELFPAY ==
[2021-10-25 10:51] LABS: Microscopic, Urine URINE MICROSCOPIC (MICROSCOPIC)
[2021-10-25 11:20] LABS: Appearance,Urine CLEAR (Clear); Bilirubin,Urine Negative (Negative); Blood, Urine Negative (Negative); Color,Urine STRAW (Yellow); Glucose,Urine (UA) Negative (Negative); Ketones,Urine Negative (Negative); Leukocyte Esterase,Urine Negative (Negative); Nitrate,Urine Negative (Negative); PH,Urine 5.5 (5.0-8.5); Protein,Urine Negative (Negative); Specific Gravity, Urine 1.015 (1.005-1.030); Urobilinogen,Urine 0.2 EU/dl (0.2)
== END ==
PROVIDERS: Visit Provider Nurse Practitioner Family
DX: R10.9 Unspecified abdominal pain (principal); R30.9 Painful micturition, unspecified
CPT/HCPCS: 81001

== ENCOUNTER 2021-11-01 14:12 | Outpatient (RCR) | payer OTHER, SELFPAY | END 2022-01-09 14:28 | disposition home or self-care (01) | LOC: PT 14:12 | PROVIDERS: Visit Provider Nurse Practitioner Family | DX: I73.9 Peripheral vascular disease, unspecified (principal) ==

== ENCOUNTER → 2021-11-02 09:13 | Outpatient (CLI) | payer OTHER, SELFPAY ==
--- NOTE | 2021-11-02 09:14 | CT_ITS ---
FINAL REPORT CLINICAL HISTORY: abdominal pain FINDINGS: CT ABDOMEN: PROCEDURE: Axial images were obtained from the lung base to the iliac crest by computed tomography without and with IV contrast. ABDOMEN: There is mild atelectasis in the lung bases. The heart is normal in size. The gallbladder is normal. There is no biliary ductal dilatation. There is diffuse fatty infiltration of the liver. The spleen is normal. No adrenal masses are present. The pancreas is normal. The right kidney is normal. There is a less than 1 cm cyst in the lateral left kidney. The aorta is normal in caliber. Note is made of a right common iliac artery stent. There is moderate stenosis of the left common iliac artery. There is no free fluid or adenopathy. The appendix is partially visualized and normal. IMPRESSION: Diffuse fatty infiltration of the liver. Moderate stenosis of the left common iliac artery. Reviewed, Interpreted and Dictated by David Esteves III, MD Transcribed by Adri Xie Authenticated by David Esteves III, MD on 11/02/2021 11:15:[address] [facility] [place]
== END ==
PROVIDERS: PCP Emergency Medicine; Visit Provider Nurse Practitioner Family
DX: R10.9 Unspecified abdominal pain (principal); R30.9 Painful micturition, unspecified
CPT/HCPCS: 74170; Q9967

== ENCOUNTER → 2022-01-10 08:46 | Outpatient (CLI) | payer OTHER, SELFPAY ==
[2022-01-10 10:25] LABS: Blood Urea Nitrogen 22 mg/dl (9-20); Calcium 9.4 mg/dl (8.4-10.2); Carbon Dioxide 26 mmol/L (22.0-30.0); Chloride 104 mmol/L (98-107); Estimated Glomerular Filt Rate 71 ml/min (>60); GFR (African American) 86 ML/MIN (>60); Glucose 118 mg/dl (74-100); Sodium 139 mmol/L (136-145)
== END ==
PROVIDERS: Visit Provider Nurse Practitioner Family
DX: I25.10 Atherosclerotic heart disease of native coronary artery without angina pectoris (principal); I11.9 Hypertensive heart disease without heart failure; E78.2 Mixed hyperlipidemia; I73.9 Peripheral vascular disease, unspecified; R94.31 Abnormal electrocardiogram [ECG] [EKG]; Z87.891 Personal history of nicotine dependence
CPT/HCPCS: 36415; 80048

== ENCOUNTER → 2022-07-11 10:43 | Outpatient (CLI) | payer OTHER, SELFPAY ==
[2022-07-11 11:55] LABS: Basophils % 0.6 % (0.1-2.0); Eosinophils # 0.1 K/mm3 (0.0-0.4); Eosinophils % 1.8 % (0.1-12.0); Hematocrit 37.5 % (42.0-52.0); Lymphocytes % 38.9 % (10-50); Mean Corpuscular HGB Conc 34.6 g/dL (31.8-35.4); Mean Corpuscular Hemoglobin 32.1 pg (27.0-31.2); Mean Corpuscular Volume 92.8 fl (80-94); Mean Platelet Volume 8.4 fl (7.4-10.4); Monocytes # 0.4 K/mm3 (0.1-1.0); Neutrophils # 2.7 K/mm3 (1.8-7.8); Neutrophils % 51.7 % (37.0-80.0); Platelet Count 241 K/mm3 (142-424); Red Blood Count 4.04 M/mm3 (4.60-6.20); White Blood Count 5.1 K/mm3 (4.8-10.8)
[2022-07-11 13:10] LABS: Alanine Aminotransferase 113 U/L (12-78); Albumin Level 4.1 g/dl (3.5-5.0); Alkaline Phosphatase 93 U/L (38-126); Aspartate Amino Transferase 62 U/L (17-59); Bilirubin,Unconjugated 0.2 mg/dL (0.0-1.1); Blood Urea Nitrogen 21 mg/dl (9-20); Calcium 9.1 mg/dl (8.4-10.2); Carbon Dioxide 27 mmol/L (22.0-30.0); Chloride 106 mmol/L (98-107); Chol/HDL Ratio 6.5 (1-3.5); Cholesterol 221 mg/dl (140-200); Estimated Glomerular Filt Rate 79 ml/min (>60); GFR (African American) 96 ML/MIN (>60); Glucose 95 mg/dl (74-100); HDL Cholesterol 34 mg/dl (40-60); Magnesium 1.6 mg/dl (1.6-2.3); Sodium 141 mmol/L (136-145); Total Protein,Serum 7.1 g/dl (6.3-8.2); Triglycerides 280 mg/dl (30-150); VLDL Cholesterol 56 mg/dL (0-40)
[2022-07-11 13:20] LABS: Bilirubin,Indirect 0.1 mg/dL (0.0-0.9); Bilirubin,Total < 0.1 mg/dl (0.2-1.3)
[2022-07-11 13:26] LABS: Free T4 (Free Thyroxine) 0.73 ng/dl (0.78-2.19)
[2022-07-11 13:40] LABS: Thyroid Stimulating Hormone 1.49 uIU/mL (0.465-4.68)
== END ==
PROVIDERS: PCP Internal Medicine Adolescent Medicine; Visit Provider Nurse Practitioner
DX: I25.10 Atherosclerotic heart disease of native coronary artery without angina pectoris (principal); I11.9 Hypertensive heart disease without heart failure; E78.2 Mixed hyperlipidemia; I73.9 Peripheral vascular disease, unspecified
CPT/HCPCS: 36415; 80048; 80061; 80076; 83735; 84439; 84443; 85025

== ENCOUNTER → 2022-07-16 12:43 | Outpatient (CLI) | payer OTHER, SELFPAY ==
--- NOTE | 2022-07-16 12:44 | CA_ITS ---
FINAL REPORT TECHNIQUE: Color Doppler, duplex Doppler and horton scale sonography of the bilateral neck vasculature was performed. Velocities were measured in the carotid arteries. Stenosis evaluation based on velocity criteria. CLINICAL HISTORY: moderate joya, Exsmoker FINDINGS: The peak systolic velocity of the right common carotid artery is 75 cm/sec and internal carotid artery 147 cm/sec. The diastolic velocity in the internal carotid artery is 52 cm/sec. The ICA/CCA ratio is 2.5. Visually, a small amount of plaque is seen. These findings are consistent with less than 50% stenosis. The external carotid artery is patent. The right vertebral artery is patent with antegrade flow. The peak systolic velocity of the left common carotid artery is 70 cm/sec and internal carotid artery 110 cm/sec. The diastolic velocity in the internal carotid artery is 44 cm/sec. The ICA/CCA ratio is 1.6. Visually, a small amount of plaque is seen. These findings are consistent with less than 50% stenosis. The external carotid artery is patent. The left vertebral artery is patent with antegrade flow. IMPRESSION: Less than 50% carotid stenosis bilaterally. Bilateral patent vertebral arteries. If indicated, CTA or MRA could further evaluate. Reviewed, Interpreted and Dictated by David Esteves III, MD Transcribed by Perri Lezama Authenticated and . [facility] [place]
== END ==
PROVIDERS: PCP Internal Medicine Adolescent Medicine; Visit Provider Nurse Practitioner
DX: I73.9 Peripheral vascular disease, unspecified (principal); I25.10 Atherosclerotic heart disease of native coronary artery without angina pectoris; I11.9 Hypertensive heart disease without heart failure; E78.2 Mixed hyperlipidemia
CPT/HCPCS: 93880